=== PATIENT | male | born 1950 | race Two or more races ===

== ENCOUNTER 2024-12-28 13:28 | Inpatient (IN) | payer OTHER, MEDICARE ==
[~2024-12-28] VITALS: Ht 177.8 cm; Wt 123.8 kg
--- NOTE | 2024-12-28 14:08 | DVH ---
EXAM: XY CHEST PORTABLE HISTORY: sob COMPARISON: None available TECHNIQUE: Portable upright AP view of the chest was performed. FINDINGS: There is interstitial prominence, greater centrally. No pneumothorax or consolidative infiltrates. T he heart is enlarged. IMPRESSION: Cardiomegaly and central pulmonary vascular congestion suggestive of mild CHF.
--- NOTE | 2024-12-28 14:36 | ED.PDOC ---
SOB-HPI HPI Comments 74 y.o male with PMH of GERD and HTN, presents to the ED for a chief complaint of exertional SOB x 1 month associated with bilateral lower extremity swelling x 2 weeks. Patient reports recently prescribed Hydrochlorothiazide for blood pressure by PCP. Patient denies any chest pain, palpitations, fever, chills. Denies tobacco, alcohol or substance use. Chief Complaint: Shortness of Breath Time Seen by MD: 13:41 Primary Care Provider: WALLACE Reviewed notes: Nurses Notes, Medications, Allergies Information Source: Patient Mode of Arrival: Wheelchair Severity: Moderate Timing: Months (1) Duration: Since onset Context: At Rest PE Risk Factors: None History of: None Modifying Factors: Nothing Associated Signs and Symptoms: Leg Swelling Past Medical History PAST MEDICAL HISTORY: GERD, HTN Surgical History: Hernia Repair Surgical History (Other): Toe Family History Family History: Reviewed,noncontributory to illness Social History Smoker: Non-Smoker Alcohol: Denies ETOH Use Drugs: Denies Drug Use Lives In: Home Constitutional: denies: chills, diaphoresis, fatigue, fever, malaise, sweats, weakness, others EENTM: denies: blurred vision, double vision, ear bleeding, ear discharge, ear drainage, ear pain, ear ringing, eye pain, eye redness, hearing loss, mouth pain, mouth swelling, nasal discharge, nose bleeding, nose congestion, nose pain, photophobia, tearing, throat pain, throat swelling, voice changes, others Respiratory: reports: shortness of breath, SOB with excertion, wheezing; denies: cough, hemoptysis, orthopnea, SOB at rest, stridor, others Cardiovascular: denies: chest pain, dizzy spells, diaphoresis, Dyspnea on exertion, edema, irregular heart beat, left arm pain, lightheadedness, palpitations, PND, syncope, others Gastrointestinal: denies: abdomen distended, abdominal pain, blood streaked bowels, constipated, diarrhea, dysphagia, difficulty swallowing, hematemesis, melena, nausea, poor appetite, poor fluid intake, rectal bleeding, rectal pain, vomiting, others Genitourinary: denies: burning, dysuria, flank pain, frequency, hematuria, incontinence, penile discharge, penile sore, pain, testicle pain, testicle swelling, urgency, others Neurological: denies: dizziness, fainting, headache, left sided numbness, left sided weakness, numbness, paresthesia, pre-existing deficit, right sided numbness, right sided weakness, seizure, speech problems, tingling, tremors, weakness, others Musculoskeletal: reports: others (leg swelling ); denies: back pain, gout, joint pain, joint swelling, muscle pain, muscle stiffness, neck pain Integumetry: denies: bruises, change in color, change in hair/nails, dryness, laceration, lesions, lumps, rash, wounds, others Allergic/Immunocompromised: denies: Difficulty Healing, Frequent Infections, Hives, Itching, others Hematologic/Lymphatic: denies: anemia, blood clots, easy bleeding, easy bruising, swollen glands, others Endocrine: denies: excessive hunger, excessive sweating, excessive thirst, excessive urination, flushing, intolerance to cold, intolerance to heat, unexplained weight gain, unexplained weight loss, others Psychiatric: denies: anxiety, bipolar disorder, depression, hopeless, panic disorder, schizophrenia, sleepless, suicidal, others All Other Systems: Reviewed and Negative Physical Exam General Appearance: No Apparent Distress, Obese HEENT: Other (Pupils symmetric, no facial asymmetry, moist mucous membranes) Neck: Full Range of Motion, Normal Inspection Respiratory: No Accessory Muscle Use, No Respiratory Distress, Rales, Wheezing Cardiovascular: Irregular, No JVD Breast Exam: Deferred Gastrointestinal: Non Tender, Soft Genitalia: Deferred Pelvic: Deferred Rectal: Deferred Extremities: Leg edema, Normal range of motion, Pedal edema Neurologic: Alert (Oriented x4), Normal Affect, Normal Mood, Other (Moves all extremities. No gross focal deficit.) Cerebellar Function: NOT DONE Reflexes: NOT DONE Skin: Dry, Normal Color, Warm Lymphatic: NOT DONE EKG EKG : Comments AFib, rate 92, normal QRS interval, QTC prolonged at 499, normal axis, possible old anteroseptal infarct, nonspecific T changes. Was a procedure done? Was a procedure done?: No Differential Dx Differential Diagnosis: Asthma, Bronchitis, CHF, COPD, Dysrhythmia, Myocardial infarction, Pneumonia, Pulmonary Embolism, Respiratory Distress Comments DVT X-Ray, Labs, Meds, VS Vital Signs Date Time Temp Pulse Resp B/P (MAP) Pulse Ox O2 Delivery O2 Flow Rate FiO2 12/28/24 18:43 94 16 92 Room Air* 0 21 12/28/24 18:43 94 16 135/76 (95) 92 12/28/24 18:42 135/76 12/28/24 15:39 92 12/28/24 13:39 97.8 86 18 121/74 (90) 92 Lab Test 12/28/24 16:39 12/28/24 15:22 12/28/24 14:37 Range/Units Urine Color Straw Yellow Urine Clarity Clear Clear Urine pH 6.5 5.0-9.0 Urine Specific [place] 1.004 1.001-1.035 Urine Protein Negative Negative Urine Ketones Negative Negative Urine Blood Negative Negative /uL Urine Nitrite Negative Negative Urine Bilirubin Negative Negative Urine Urobilinogen Normal Negative mg/dL Urine Leukocyte Esterase Negative Negative /uL Urine RBC None seen 0 - 3 /hpf Urine Microscopic WBC < 1 0-3 /HPF Urine Squamous Epithelial Cells None seen <5 /hpf Urine Bacteria None seen None Seen /hpf Urine Glucose Normal Normal mg/dL Troponin I High Sensitivity 10 9 </=54 ng/L White Blood Count 7.3 4.4-10.8 10^3/uL Red Blood Count 4.05 L 4.5-5.90 10^6/uL Hemoglobin 14.0 13.5-17.5 g/dL Hematocrit 40.3 L 41.0-53.0 % Mean Corpuscular Volume 99.5 80.0-100.0 fL Mean Corpuscular Hemoglobin 34.4 H 28.0-32.0 pg Mean Corpuscular Hemoglobin Concent 34.6 32.0-36.0 g/dL Red Cell Distribution Width 14.5 H 11.8-14.3 % Platelet Count 143 140-450 10^3/uL Mean Platelet Volume 6.4 L 6.9-10.8 fL Neutrophils (%) (Auto) 80.3 H 37.0-80.0 % Lymphocytes (%) (Auto) 8.9 L 10.0-50.0 % Monocytes (%) (Auto) 10.0 0.0-12.0 % Eosinophils (%) (Auto) 0.4 0.0-7.0 % Basophils (%) (Auto) 0.4 0.0-2.0 % Neutrophils # (Auto) 5.9 1.6-8.6 10 ^3/uL Lymphocytes # (Auto) 0.6 0.4-5.4 10 ^3/uL Monocytes # (Auto) 0.7 0-1.3 10 ^3/uL Eosinophils # (Auto) 0 0-0.8 10 ^3/uL Basophils # (Auto) 0 0-0.2 10 ^3/uL Nucleated Red Blood Cells 0.0 % Sodium Level 123 L 136-145 mmol/L Potassium Level 5.3 H 3.5-5.1 mmol/L Chloride Level 87 L 98-107 mmol/L Carbon Dioxide Level 30 20-31 mmol/L Anion Gap 6 5-15 Blood Urea Nitrogen 11 9-23 mg/dL Creatinine 0.64 L 0.700-1.30 mg/dL Glomerular Filtration Rate Calc 100 >90 mL/min BUN/Creatinine Ratio 17.2 10.0-20.0 Serum Glucose 109 H 74-106 mg/dL Calcium Level 9.6 8.7-10.4 mg/dL Total Bilirubin 1.6 H 0.2-1.0 mg/dL Aspartate Amino Transferase (AST) 24 13-40 U/L Alanine Aminotransferase (ALT) 20 7-40 U/L Alkaline Phosphatase 72 46-116 U/L B-Type Natriuretic Peptide 1112.71 0-100 pg/mL Total Protein 5.9 5.7-8.2 g/dL Albumin 4.4 3.2-4.8 g/dL Current Medications Medications (Trade) Dose Ordered Sig/Joe Route Start Time Stop Time Status Last Admin Furosemide (Lasix Injection) 40 mg ONCE ONCE IV 12/28/24 13:45 12/28/24 13:47 DC 12/28/24 18:42 [place] [address] Ph: [phone] DIAGNOSTIC IMAGING Diagnostic Imaging Report : [id number] Signed PATIENT: MILLICENT HAWKINS ACCT: [id number] UNIT: [id number] : 1950 LOC: ER ROOM / BED: / AGE / SEX: 74 / M ADM STATUS: REG ER SERVICE 1345 ORDERING PHYSICIAN: DIANE DENNEY MD PROCEDURE(s): BLDVT - BiLat Lower DVT REASON: edema ORDER NUMBER(s): [id number], ACCESSION NUMBER(s): [id number] BILATERAL LOWER EXTREMITY VENOUS DOPPLER CLINICAL HISTORY: edema Technique: Duplex Doppler evaluation of the deep venous systems of both lower extremities from the common femoral veins to the popliteal veins including color Doppler and spectral/pulsed waveform analysis was performed. COMPARISON: FINDINGS: The right and left common femoral, superficial femoral, popliteal, posterior tibial veins and trifurcations appear patent with normal augmentation, phasicity, compressibility and color-flow. There is a right popliteal fossa Lindquist's cyst measuring 5.0 x 4.4 cm in the left popliteal fossa Lnidquist's cyst measuring 4.2 x 3.9 cm. IMPRESSION: 1. There is no sonographic evidence for DVT in the lower extremities. HS:Y ATED BY: WILD BRAY MD DICTATED DATE/TIME: 12/28/241449 SIGNED BY: WLID BRAY MD SIGNED DATE/TIME: 12/28/241449 CC: [place] [address] Ph: [phone] DIAGNOSTIC IMAGING Diagnostic Imaging Report : [id number] Signed PATIENT: MILLICENT HAWKINS ACCT: [id number] UNIT: [id number] : 1950 LOC: ER ROOM / BED: / AGE / SEX: 74 / M ADM STATUS: REG ER SERVICE 44 ORDERING PHYSICIAN: DIANE DENNEY MD PROCEDURE(s): CXRP - CHEST PORTABLE REASON: sob ORDER NUMBER(s): [id number], ACCESSION NUMBER(s): [id number] EXAM: XY CHEST PORTABLE HISTORY: sob COMPARISON: None available TECHNIQUE: Portable upright AP view of the chest was performed. FINDINGS: There is interstitial prominence, greater centrally. No pneumothorax or consolidative infiltrates. The heart is enlarged. IMPRESSION: Cardiomegaly and central pulmonary vascular congestion suggestive of mild CHF. ATED BY: YADIEL BOONE MD DICTATED DATE/TIME: 12/28/241404 SIGNED BY: YADIEL BOONE MD SIGNED DATE/TIME: 02/10/25 1405 CC: X-Ray, Labs, Meds, VS Comment 74-year-old male with history of hypertension and GERD complaining of exertional dyspnea and lower extremity swelling Vitals remarkable for oxygen saturation 92% on room air Exam remarkable for diminished breath sounds, bilateral scattered expiratory wheezes and rales, irregularly irregular heart rhythm, 2+ pitting edema bilateral lower extremities. Rhythm strip independently interpreted by me: AFib, rate 92, no PVC is EKG AFib, nonspecific T changes Chest x-ray IMPRESSION: Cardiomegaly and central pulmonary vascular congestion suggestive of mild CHF. Lower extremity ultrasound: No DVT bilaterally CBC unremarkable, metabolic panel remarkable for sodium 123, potassium 5.3, chloride 87 BNP 1112.71, two serial troponins negative Patient treated with the following in the ED: Lasix 40 mg IV, Nitro-Bid 1/2 inch to chest wall On re-evaluation, patient was resting comfortably with stable vitals. No respiratory distress at rest. Plan is treated with the patient for diuresis, and cardiology evaluation. Time of 1ST Reevaluation: 14:31 Reevaluation 1ST: Unchanged Patient Education/Counseling: Diagnosis, Treatment, Prognosis Family Education/Counseling: Diagnosis, Treatment, Prognosis Departure 1 Departure Time of Disposition: 19:52 Impression: Primary Impression: New onset a-fib Additional Impression: New onset of congestive heart failure Disposition: ADMITTED INPATIENT Admit to: Tele Condition: Guarded Critical Care Note Critical Care Time?: Yes (45 min-critical care time only) Critical care comment: Critical care time includes multiple bedside re-evaluations, review of lab and imaging studies, discussion of the case with the admitting provider. Patient was high risk for hemodynamic and/or respiratory decompensation. Stability Stability form required: No Heart Score Heart Score: Heart Score Response (Comments) Value History N/A 0 EKG N/A 0 Age N/A 0 Risk Factors N/A 0 Troponin N/A 0 Total 0 I personally scribed for DIANE DENNEY MD ([facility]) on 12/28/24 at 14:36. Electronically submitted by Lluvia Ryan ([facility]). I personally scribed for DIANE DENNEY MD ([facility] on 12/28/24 at 14:55. Electronically submitted by Lluvia Ryan ([facility]). DIANE DENNEY MD Dec 28, 2024 14:36
[2024-12-28 14:47] LABS: Basophils # (auto) 0 10 ^3/uL (0-0.2); Basophils % (auto) 0.4 % (0.0-2.0); Eosinophils # (auto) 0 10 ^3/uL (0-0.8); Eosinophils % (auto) 0.4 % (0.0-7.0); Hematocrit 40.3 % (41.0-53.0); Lymphocytes # (auto) 0.6 10 ^3/uL (0.4-5.4); Lymphocytes % (auto) 8.9 % (10.0-50.0); Mean Corpuscular Hemoglobin 34.4 pg (28.0-32.0); Mean Corpuscular Hgb Conc. 34.6 g/dL (32.0-36.0); Mean Corpuscular Volume 99.5 fL (80.0-100.0); Monocytes # (auto) 0.7 10 ^3/uL (0-1.3); Neutrophils # (auto) 5.9 10 ^3/uL (1.6-8.6); Neutrophils % (auto) 80.3 % (37.0-80.0); Platelet Count (auto) 143 10^3/uL (140-450); Red Blood Cells 4.05 10^6/uL (4.5-5.90); Red Cell Distribution Width 14.5 % (11.8-14.3); White Blood Cell 7.3 10^3/uL (4.4-10.8)
--- NOTE | 2024-12-28 14:53 | DVH ---
BILATERAL LOWER EXTREMITY VENOUS DOPPLER CLINICAL HISTORY: edema Technique: Duplex Doppler evaluation of the deep venous systems of both lower extremities from the co mmon femoral veins to the popliteal veins including color Doppler and spectral/pulsed waveform analys is was performed. COMPARISON: FINDINGS: The right and left common femoral, superficial femoral, popliteal, posterior tibial veins and trifur cations appear patent with normal augmentation, phasicity, compressibility and color-flow. There is a right popliteal fossa Lindquist's cyst measuring 5.0 x 4.4 cm in the left popliteal fossa Lindquist's cyst m easuring 4.2 x 3.9 cm. IMPRESSION: 1. There is no sonographic evidence for DVT in the lower extremities. HS:Y
[2024-12-28 15:31] LABS: Alanine Aminotransferase 20 U/L (7-40); Albumin 4.4 g/dL (3.2-4.8); Alkaline Phosphatase 72 U/L (46-116); Anion Gap 6 (5-15); Aspartate Aminotransferase 24 U/L (13-40); BUN/Creatinine Ratio 17.2 (10.0-20.0); Blood Urea Nitrogen 11 mg/dL (9-23); Calcium 9.6 mg/dL (8.7-10.4); Carbon Dioxide 30 mmol/L (20-31)
[2024-12-28 15:32] LABS: Total Protein 5.9 g/dL (5.7-8.2)
[2024-12-28 15:33] LABS: Bilirubin, Total 1.6 mg/dL (0.2-1.0); Chloride 87 mmol/L (98-107); Glucose 109 mg/dL (74-106); Potassium 5.3 mmol/L (3.5-5.1); Sodium 123 mmol/L (136-145)
[2024-12-28 18:30] LABS: Urine Bacteria None Seen /hpf (None Seen)
[2024-12-28 18:41] LABS: Urine Blood Negative /uL (Negative); Urine Clarity Clear (Clear); Urine Protein, UAD Negative (Negative); Urine Specific Gravity 1.004 (1.001-1.035); Urine Squamous Epithelial Cell None Seen /hpf (<5); Urine Urobilinogen Normal (Negative); Urine WBC < 1 /HPF (0-3); Urine pH 6.5 (5.0-9.0)
[2024-12-28] MEDS: FUROSEMIDE 40 MG/4 ML VIAL IV ONE (18:42)
[2024-12-28 18:43] VITALS: PULSE 94; RESP 16; O2SAT 92
[2024-12-28 18:47] LABS: Urine Color STRAW (Yellow)
[2024-12-28] MEDS: NITROGLYCERIN 2% OINT 1GM PKG TD ONE (19:45)
[2024-12-28] MEDS ORDERED: MORPHINE SULFATE INJ 2 MG/ml SYRG IV PRN (20:45)
[2024-12-28] MEDS ORDERED: NITROGLYCERIN 0.4 MG SL TAB SL PRN (20:45)
[2024-12-28] MEDS ORDERED: ONDANSETRON HCL 4 MG/2 ML VIAL IV PRN (20:45)
--- NOTE | 2024-12-28 21:11 | ECG ---
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
--- NOTE | 2024-12-28 21:38 | DVHHPRES ---
History of Present Illness Resident Creating Document: HIMANSHU CHURCHILL RESIDENT History of Present Illness MILLICENT HAWKINS is a 74-year-old male with a PMH of GERD and HTN presented to the ED with the chief complaints of on and off respiratory symptoms like cough, cold, wheeze for 1 month which has been worsening for past 1 week associated with shortness of Breath with moderate exertion, bilateral lower extremity swelling, difficulty breathing in the midnight which made him to wake him and thive for air(PND). patient went to PCP, given inhaler and HCTZ at but no improvement, which prompted him to visit ED. on my assessment patient denies fever, nausea, vomiting, chest pain, diaphoresis, and other acute associated symptoms. PMH: HTN for 20 years( on amlodipine and benazepril), GERD on Protonix 10 PSH: Umbilical hernia repair in past Family history: Diabetes in father and brother Social history: Lives at home with family. Former smoker (40 years ago smoker 1.5 pack per day for 20 years), 3-4 glasses of wine per day, denied other drug abuse Allergies: No known allergies Home medications: Amlodipine 10 mg, benazepril 40 mg, pantoprazole 40 Review of Systems Review of Systems Patient seen and examined at the bedside. Currently given 1 dose of Lasix, patient has been reported mild improvement in his symptoms, reported no new complaints. Ordered echocardiogram and other lab test, pending. CXR showed findings suggesti ve of CHF, consulted cardiology. Constitutional: No: Fever, Chills, Sweats, Weakness, Malaise, Other Eyes: No: Pain, Vision change, Conjunctivae inflammation, Eyelid inflammation, Other, Redness ENT: No: Ear pain, Ear discharge, Nose pain, Nose discharge, Nose congestion, Mouth pain, Mouth swelling, Throat pain, Throat swelling, Other Respiratory: Cough, Shortness of breath, SOB with excertion Cardiovascular: Orthopnea, Paroxysmal Noc. Dyspnea, Edema Gastrointestinal: No: Nausea, Vomiting, Abdominal Pain, Diarrhea, Constipation, Melena, Hematochezia, Other Genitourinary: No Dysuria, No Frequency, No Incontinence, No Hematuria, No Retention, No Other Musculoskeletal: No: other, neck pain, shoulder pain, arm pain, back pain, hand pain, leg pain, foot pain Skin: No: Rash, Lesions, Jaundice, Bruising, Other Neurological: No: Weakness, Numbness, Incoordination, Change in speech, Con fusion, Seizures, Other Allergies: Coded Allergies: NO KNOWN ALLERGIES (Unverified , 12/28/24) Medications Current Medications Medications Dose Ordered Sig/Joe Route Start Time Stop Time Status Last Admin Dose Admin Sodium Chloride 10 ml Q8HR IV 12/28/24 22:00 Ondansetron HCl 4 mg Q4HP PRN IV 12/28/24 20:45 Enoxaparin Sodium 40 mg DAILY SC 12/29/24 10:00 Acetaminophen 650 mg Q6HP PRN PO 12/28/24 20:45 Nitroglycerin 0.4 mg Q5MINP PRN SL 12/28/24 20:45 Morphine Sulfate 2 mg Q30M PRN IV 12/28/24 20:45 Exam Vital Signs Vital Signs Date Time Temp Pulse Resp B/P (MAP) Pulse Ox O2 Delivery O2 Flow Rate FiO2 12/28/24 18:43 94 16 92 Room Air* 0 21 12/28/24 18:43 135/76 (95) 12/28/24 13:39 97.8 Exam Pt is lying on bed General Appearance: Alert, Oriented X3, Cooperative, mild distress HEENT: Atraumatic, Mucous membranes moist/pink Respiratory: Mild crackles, Normal air movement Cardiovascular: Regular rate, Normal S1, Normal S2 Abdominal: Active bowel sounds, Soft, no distention, no tenderness Extremities: 2+ BLE, Normal pulses, No tenderness Skin: No Significant rash, except past surgical scars Neuro: Normal speech, sensorimotor deficits none Psych/Mental Status: Mental status NL, Mood NL Labs/Xrays Labs Test 12/28/24 16:39 12/28/24 15:22 12/28/24 14:37 Range/Units Urine Color Straw Yellow Urine Clarity Clear Clear Urine pH 6.5 5.0-9.0 Urine Specific [place] 1.004 1.001-1.035 Urine Protein Negative Negative Urine Ketones Negative Negative Urine Blood Negative Negative /uL Urine Nitrite Negative Negative Urine Bilirubin Negative Negative Urine Urobilinogen Normal Negative mg/dL Urine Leukocyte Esterase Negative Negative /uL Urine RBC None seen 0 - 3 /hpf Urine Microscopic WBC < 1 0-3 /HPF Urine Squamous Epithelial Cells None seen <5 /hpf Urine Bacteria None seen None Seen /hpf Urine Glucose Normal Normal mg/dL Troponin I High Sensitivity 10 </=54 ng/L White Blood Count 7.3 4.4-10.8 10^3/uL Red Blood Count 4.05 L 4.5-5.90 10^6/uL Hemoglobin 14.0 13.5-17.5 g/dL Hematocrit 40.3 L 41.0-53.0 % Mean Corpuscular Volume 99.5 80.0-100.0 fL Mean Corpuscular Hemoglobin 34.4 H 28.0-32.0 pg Mean Corpuscular Hemoglobin Concent 34.6 32.0-36.0 g/dL Red Cell Distribution Width 14.5 H 11.8-14.3 % Platelet Count 143 140-450 10^3/uL Mean Platelet Volume 6.4 L 6.9-10.8 fL Neutrophils (%) (Auto) 80.3 H 37.0-80.0 % Lymphocytes (%) (Auto) 8.9 L 10.0-50.0 % Monocytes (%) (Auto) 10.0 0.0-12.0 % Eosinophils (%) (Auto) 0.4 0.0-7.0 % Basophils (%) (Auto) 0.4 0.0-2.0 % Neutrophils # (Auto) 5.9 1.6-8.6 10 ^3/uL Lymphocytes # (Auto) 0.6 0.4-5.4 10 ^3/uL Monocytes # (Auto) 0.7 0-1.3 10 ^3/uL Eosinophils # (Auto) 0 0-0.8 10 ^3/uL Basophils # (Auto) 0 0-0.2 10 ^3/uL Nucleated Red Blood Cells 0.0 % Sodium Level 123 L 136-145 mmol/L Potassium Level 5.3 H 3.5-5.1 mmol/L Chloride Level 87 L 98-107 mmol/L Carbon Dioxide Level 30 20-31 mmol/L Anion Gap 6 5-15 Blood Urea Nitrogen 11 9-23 mg/dL Creatinine 0.64 L 0.700-1.30 mg/dL Glomerular Filtration Rate Calc 100 >90 mL/min BUN/Creatinine Ratio 17.2 10.0-20.0 Serum Glucose 109 H 74-106 mg/dL Calcium Level 9.6 8.7-10.4 mg/dL Total Bilirubin 1.6 H 0.2-1.0 mg/dL Aspartate Amino Transferase (AST) 24 13-40 U/L Alanine Aminotransferase (ALT) 20 7-40 U/L Alkaline Phosphatase 72 46-116 U/L B-Type Natriuretic Peptide 1112.71 0-100 pg/mL Total Protein 5.9 5.7-8.2 g/dL Albumin 4.4 3.2-4.8 g/dL Assessment/Plan Assessment/Plan # Afib likely new onset WITHOUT RVR - personnel monitor - EKG reviewed - rate control with Coreg - therapeutic Lovenox # ? Acute systolic v/s diastolic CHF likely new onset # Orthopnea and PND # B/L lower extremity pitting edema - elevated BNP - CXR showing cardiomegaly with pulmonary vascular congestion - ordered echocardiogram - currently receiving Lasix 40 mg iv bid - strict I&O - ordered TSH, lipid panel, UDS - GDMT as tolerated with Coreg 3.125 - cardiology consult # uncontrolled hypertension - continuously monitor - currently giving coreg # hyponatremia - monitor for now # hyperkalemia - ordered protocol # rule out influenza and COVID -rapid test ordered, pending # GERD - resume home meds # ruled out DVT - venous scan negative # morbid obesity with a BMI 35 -nutritional counseling PUD PPX : Protonix VTE PPX : Lovenox Diet: Cardiac diet Reconciled home meds Goals of care discussed with the patient and son for more than 27 minutes: Full code status Case discussed with Dr. Moe, patient and nurse Plan discussed with: Patient, Son, Other (RN) My Orders Orders - HIMANSHU CHURCHILL RESIDENT Procedure Category Date Status Time Admit ADMIT 12/28/24 Transmitted 20:32 Allergies MONSE 12/28/24 In Process 20:32 Code Status CODE 12/28/24 Transmitted 20:32 Sodium Chloride Lock PHA 12/28/24 In Process (Saline Lock Ns) 22:00 Ondansetron Hcl PHA 12/28/24 In Process (Zofran) 20:45 Enoxaparin Sodium PHA 12/29/24 In Process (Lovenox) 10:00 Complete Blood Count LAB 12/29/24 Verified 04:00 Comprehensive LAB 12/29/24 Verified Metabolic Panel 04:00 Cardiac DIET 12/29/24 Transmitted Diet-2gna,Lofat,Lochol Breakfast Echo 2d Mode Cardiac US 12/28/24 Logged DOP 20:32 Condition: Stable MONSE 12/28/24 In Process 20:32 Acetaminophen Tablet PHA 12/28/24 In Process (Tylenol Tablet) 20:45 Nitroglycerin PHA 12/28/24 In Process Sublingual (Ntrostat 20:45 Morphine Sulfate PHA 12/28/24 In Process Injection 20:45 Oxygen By Nasal RT 12/28/24 Transmitted Cannula 20:32 Stat Ekg For Chest MONSE 12/28/24 In Process Pain 20:32 Notify Md Of Changes MONSE 12/28/24 In Process From Base 20:32 Repair Service Clerk For [facility] 12/28/24 In Process 24 Hours 20:32 Emergency Dysrhythmia [facility] 12/28/24 In Process Protocol 20:32 Rhythm Strips Once [facility] 12/28/24 In Process Every Shift 20:32 Date of Service: Dec 28, 2024 Billing Provider: EREN MOE MD Common Visit Codes: [id number] INP/OBS CARE (HIGH) HIMANSHU CHURCHILL RESIDENT Dec 28, 2024 21:38 EREN MOE MD Dec 30, 2024 01:17
[2024-12-28] MEDS: DEXTROSE (50%) 50ML SYRG IV ONE (22:47)
[2024-12-28] MEDS: SODIUM BICARB 8.4% 50Meq/50ml SYR INJ IV ONE (22:47)
[2024-12-28] MEDS: InsuLIN REG 1unit/0.01ml Soln (100units/ml) IV ONE (22:48)
[2024-12-28] MEDS: SODIUM CHLOR 0.9% PF (SALINE LOCK) 10ML VIAL/SYR IV SCH (22:49)
[2024-12-28 23:03] LABS: Amphetamine Screen, Urine Neg (NEGATIVE); Barbiturate Scree,Urine Neg (NEGATIVE); Benzodiazephine Screen, Urine Neg (NEGATIVE); Cannabinoid Screen, Urine Neg (NEGATIVE); Cocaine Screen, Urine Neg (NEGATIVE); Opiate Scree,Urine Neg (NEGATIVE); Phencyclidine Screen, Urine Neg (NEGATIVE)
[2024-12-28 23:04] LABS: INR 1.11 (0.9-1.15); Partial Thromboplastin Time 26.2 SEC (24.5-34.5); Prothrombin Time 11.6 sec (9.3-11.8)
[2024-12-28 23:07] LABS: Triglycerides 54 mg/dL (< 150)
[2024-12-28 23:08] LABS: LDL Cholesterol 83 mg/dL (< 100)
[2024-12-28 23:09] LABS: Cholesterol 157 mg/dL (< 200)
[2024-12-28 23:10] LABS: HDL Cholesterol 65 mg/dL (40-59)
[2024-12-28 23:37] LABS: Blood Alcohol < 3.0 mg/dL (<10)
[2024-12-29] VITALS (7 sets, daily range): BP systolic 109–134; BP diastolic 66–84; PULSE 74–106; RESP 18–78; TEMP 97.2–98.6; O2SAT 90–98
[2024-12-29] MEDS: CARVEDILOL 3.125 MG TAB PO ONE (02:04)
[2024-12-29] MEDS: ENOXAPARIN SOD 100 MG/1 ML SYRINGE SC ONE (02:05)
[2024-12-29] MEDS: FUROSEMIDE 40 MG/4 ML VIAL IV SCH (05:52)
[2024-12-29] MEDS: PANTOPRAZOLE 40 MG TAB PO SCH (05:56)
[2024-12-29 07:30] LABS: Basophils # (auto) 0 10 ^3/uL (0-0.2); Basophils % (auto) 0.3 % (0.0-2.0); Eosinophils # (auto) 0.1 10 ^3/uL (0-0.8); Eosinophils % (auto) 1.3 % (0.0-7.0); Hematocrit 44.3 % (41.0-53.0); Hemoglobin 15.1 g/dL (13.5-17.5); Lymphocytes # (auto) 0.6 10 ^3/uL (0.4-5.4); Lymphocytes % (auto) 10.7 % (10.0-50.0); Mean Corpuscular Hemoglobin 34.1 pg (28.0-32.0); Mean Corpuscular Hgb Conc. 34.1 g/dL (32.0-36.0); Monocytes # (auto) 0.7 10 ^3/uL (0-1.3); Monocytes % (auto) 12.2 % (0.0-12.0); Neutrophils # (auto) 4.6 10 ^3/uL (1.6-8.6); Neutrophils % (auto) 75.5 % (37.0-80.0); Nucleated Red Blood Cells % 0.1 %; Platelet Count (auto) 149 10^3/uL (140-450); Red Blood Cells 4.42 10^6/uL (4.5-5.90); Red Cell Distribution Width 14.7 % (11.8-14.3)
[2024-12-29 07:39] LABS: Alanine Aminotransferase 20 U/L (7-40); Alkaline Phosphatase 75 U/L (46-116); Anion Gap 7 (5-15); BUN/Creatinine Ratio 15.9 (10.0-20.0); Blood Urea Nitrogen 11 mg/dL (9-23); Calcium 9.9 mg/dL (8.7-10.4); Glucose 98 mg/dL (74-106); Potassium 4.2 mmol/L (3.5-5.1)
[2024-12-29 07:40] LABS: Aspartate Aminotransferase 28 U/L (13-40)
[2024-12-29 07:41] LABS: Albumin 4.5 g/dL (3.2-4.8); Total Protein 6.3 g/dL (5.7-8.2)
[2024-12-29 07:57] LABS: Carbon Dioxide 32 mmol/L (20-31); Chloride 89 mmol/L (98-107); Sodium 128 mmol/L (136-145)
[2024-12-29 09:05] LABS: COVID19 ANTIGEN SOFIA FIA NEGATIVE (NEGATIVE); Rapid Influenza A Negative (Negative); Rapid Influenza B Negative (Negative)
[2024-12-29] MEDS ORDERED: AMLO1TAB23 PO (09:26)
[2024-12-29] MEDS ORDERED: ASPI81CH59 PO (09:27)
[2024-12-29] MEDS ORDERED: BENA40TA71 PO (09:28)
[2024-12-29] MEDS ORDERED: HYDR12.59 PO (09:30)
[2024-12-29] MEDS ORDERED: CHOL20007 PO (09:32)
[2024-12-29] MEDS ORDERED: PANT1INJ3 PO (09:35)
[2024-12-29] MEDS ORDERED: ENOXAPARIN SOD 40 MG/0.4 ML SYRINGE SC SCH (10:00)
[2024-12-29] MEDS ORDERED: BENAZEPRIL HCL 10 MG TAB PO SCH (10:00)
[2024-12-29] MEDS: ENOXAPARIN SOD 100 MG/1 ML SYRINGE SC SCH (10:00)
--- NOTE | 2024-12-29 12:27 | DVHSR ---
APPROVED REPORT EXAM: Two-dimensional and M-mode echocardiogram with Doppler and color Doppler. Blood Pressure: 119/77 mmHg INDICATION CHF RISK FACTORS Obesity: Height: 5'10", Weight: 243 DIMENSIONS LVDd6.3 (3.8-5.7cm)LA (2D)5.2 (1.9-4.0cm)Aortic Root3.5 (2.0-3.7cm) LVDs5.8 (2.5-4.0cm)LA (MM) (1.9-4.0cm)Aortic Cusp Exc1.8 (1.5-2.0cm) EF (%) 20.0 (55-70%)Rt. Atrium6.0 (1.9-4.0cm)Asc. Aorta cm IVSd1.1 (0.7-1.1cm)RV (D) (1.8-2.4cm) PWd1.3 (0.7-1.1cm) Mitral Valve MitralMitral Stenosis E wave1.31m/sMV Mean GR.mmHg E/A ratio0.02D MVAcm2 Aortic Valve Aortic ValveAortic Stenosis V10.77m/Esther Mean GR.3mmHg V21.23m/Esther Peak GR.6mmHg LVOT Diameter2.0 (1.8-2.4cm)Doppler AVA1.97cm2 Pulmonic Valve V20.77m/s Tricuspid Valve TR Velocity3.13m/s [id number] Other Information Technically limited study due to body habitus, patient sitting up. Conclusion severe dilated LV LVEF <20% by visual estimate RV enlarged with significant dysfunction moderat to severe mitral regurg marked biatrial enlargement moderat to severe tricuspid regurg
--- NOTE | 2024-12-29 14:16 | DVHCONRES ---
Date Seen: Dec 29, 2024 Resident Creating Document: ALONZO TINEO RESIDENT Referring Physician Dr. Gipson, resident Reason for Consultation New onset CHF History of Present Illness This is a 74-year-old male who comes into the ED with chief complain of shortness of Breath. He has a past medical history relevant for hypertension, GERD. Patient takes amlodipine 10 mg q.d., benazepril 40 mg q.d., Protonix 40 mg q.d. Past surgical history of umbilical hernia repair. Family history of diabetes in father and brother. Social history relevant for heavy smoker, quit 40 years ago. Alcohol use, 3-4 glasses of wine per day, denied any illicit drug use. Patient stated that for the last four weeks he has been experiencing worsening shortness of breath, cough, chills and wheezing, sudden in the last week it has been getting worse. He has been experiencing bilateral lower leg swelling, inability to lie flat at night when sleeping. He was given hydrochlorothiazide clinic however it did not show any improvement. Patient currently denies any chest pain, fevers, nausea, vomiting, diaphoresis, dizziness, lightheadedness. In the ED, patient had an x-ray which revealed moderate vascular congestion, patient was started on Lasix, he was also started on his blood pressure medications along with carvedilol, flu and COVID tests came back negative, he was also given hyperkalemic treatment. An EKG revealed AFib with RVR, no ST-T wave changes. On my assessment, patient states feeling better, he was currently sleeping, denied any acute symptoms, he was on room air. Family History: Patient reports no known family medical history. Allergies: Coded Allergies: NO KNOWN ALLERGIES (Unverified , 12/28/24) Home Meds Reported Medications Pantoprazole Sodium (PANTOPRAZOLE SODIUM) 40 Mg Inj, 40 MG PO DAILY, INJ 12/29/24 Cholecalciferol (VITAMIN D3) 2,000 Unit Tab, 5000 UNIT PO DAILY, TAB 12/29/24 Hydrochlorothiazide (Hydrochlorothiazide) 12.5 Mg Cap, 1 CAP PO DAILY, #30 CAP 5 Refills 12/29/24 Benazepril Hcl (Benazepril Hcl) 40 Mg Tab, 1 TAB PO DAILY, #30 TAB 5 Refills 12/29/24 Aspirin (Aspirin Low Dose) 81 Mg Chw, 1 TAB PO DAILY, #30 TAB 3 Refills 12/29/24 Amlodipine Besylate (Amlodipine Besylate) 10 Mg Tab, 1 TAB PO DAILY, #30 TAB 5 Refills 12/29/24 Current Medications Current Medications Medications (Trade) Dose Ordered Sig/Joe Route PRN Reason Start Time Stop Time Status Last Admin Sodium Chloride (Saline Lock Ns) 10 ml Q8HR IV 12/28/24 22:00 12/29/24 05:53 Ondansetron HCl (Zofran) 4 mg Q4HP PRN IV NAUSEA / VOMITING 12/28/24 20:45 12/29/24 10:09 DC Enoxaparin Sodium (Lovenox) 40 mg DAILY SC 12/29/24 10:00 12/28/24 23:32 DC Acetaminophen (Tylenol Tablet) 650 mg Q6HP PRN PO PAIN SCALE 1-3 OR TEMP>100.4 12/28/24 20:45 Nitroglycerin (Ntrostat Sublingual) 0.4 mg Q5MINP PRN SL FOR CHEST PAIN 12/28/24 20:45 12/29/24 10:09 DC Morphine Sulfate 2 mg Q30M PRN IV FOR CHEST PAIN 12/28/24 20:45 12/29/24 10:09 DC Furosemide (Lasix Injection) 40 mg BIDD IV 12/29/24 06:00 Benazepril HCl (Lotensin Tablet) 40 mg DAILY PO 12/29/24 10:00 12/28/24 23:32 DC Pantoprazole Sodium (Protonix Tablet) 40 mg DAILY@0600 PO 12/29/24 06:00 12/29/24 05:56 Carvedilol (Coreg Tablet) 3.125 mg Q12HR PO 12/29/24 22:00 12/29/24 10:09 DC Enoxaparin Sodium (Lovenox) 110 mg Q12HR SC 12/29/24 10:00 Review of Systems Constitutional: Patient denies weight changes. Eyes: Patient denies any visual symptoms. Ears, Nose, and Throat: No difficulties with hearing. No symptoms of rhinitis or sore throat. Cardiovascular: Patient denies chest pains, palpitations, orthopnea and paroxys mal nocturnal dyspnea. Respiratory: Shortness of breath, wheezing and cough GI: No nausea, vomiting, diarrhea, constipation, abdominal pain, hematochezia or melena. : No urinary hesitancy or dribbling. No nocturia or urinary frequency. No abnormal urethral discharge. Musculoskeletal: No myalgias, arthralgias Neurologic: No chronic headaches, no seizures. Patient denies numbness, tingling or weakness. Psychiatric: Patient denies problems with mood disturbance. No problems with anxiety. Endocrine: No excessive urination or excessive thirst. Dermatologic: Patient denies any rashes or skin changes. Vital Signs Vital Signs Date Time Temp Pulse Resp B/P (MAP) Pulse Ox O2 Delivery O2 Flow Rate FiO2 12/29/24 13:04 97.6 79 18 134/71 (92) 92 97.6 12/29/24 08:37 Room Air* 0 21 Physical Exam General: Awake, alert, comfortable appearing, in no acute distress. HEENT: Head is normocephalic and atraumatic. Pupils are equal, round, and reactive to light. Extraocular muscles are intact. No nasal discharge. No facial trauma. Intraoral exam shows moist mucous membranes with no tonsillar enlargement or exudate. Neck: Supple with no cervical lymphadenopathy No meningismus. No goiter. Heart: Regular rate without murmur, rub, or gallop. Lungs: Bilateral [id number]-lkbexbgi crackles Abdomen: No external sign of injury. Bowel sounds are present. Abdomen is soft, nontender. No rebound, no guarding, no rigidity. There are no palpable masses. There is no flank pain on exam. Extremities: Strong peripheral pulses. Pitting edema plus two Skin: No rash. Neurologic: Cranial nerves II-XII intact without motor, sensory, or cerebellar deficit, no asterixis. Labs/Diagnostic Data Labs Test 12/29/24 07:54 12/29/24 06:40 12/28/24 22:41 12/28/24 22:39 Range/Units Influenza Type A Antigen Negative Negative Influenza Type B Antigen Negative Negative SARS-CoV-2 Antigen (Rapid) Negative NEGATIVE White Blood Count 6.0 4.4-10.8 10^3/uL Red Blood Count 4.42 L 4.5-5.90 10^6/uL Hemoglobin 15.1 13.5-17.5 g/dL Hematocrit 44.3 41.0-53.0 % Mean Corpuscular Volume 100.0 80.0-100.0 fL Mean Corpuscular Hemoglobin 34.1 H 28.0-32.0 pg Mean Corpuscular Hemoglobin Concent 34.1 32.0-36.0 g/dL Red Cell Distribution Width 14.7 H 11.8-14.3 % Platelet Count 149 140-450 10^3/uL Mean Platelet Volume 6.6 L 6.9-10.8 fL Neutrophils (%) (Auto) 75.5 37.0-80.0 % Lymphocytes (%) (Auto) 10.7 10.0-50.0 % Monocytes (%) (Auto) 12.2 H 0.0-12.0 % Eosinophils (%) (Auto) 1.3 0.0-7.0 % Basophils (%) (Auto) 0.3 0.0-2.0 % Neutrophils # (Auto) 4.6 1.6-8.6 10 ^3/uL Lymphocytes # (Auto) 0.6 0.4-5.4 10 ^3/uL Monocytes # (Auto) 0.7 0-1.3 10 ^3/uL Eosinophils # (Auto) 0.1 0-0.8 10 ^3/uL Basophils # (Auto) 0 0-0.2 10 ^3/uL Nucleated Red Blood Cells 0.1 % Sodium Level 128 #L 136-145 mmol/L Potassium Level 4.2 3.5-5.1 mmol/L Chloride Level 89 L 98-107 mmol/L Carbon Dioxide Level 32 H 20-31 mmol/L Anion Gap 7 5-15 Blood Urea Nitrogen 11 9-23 mg/dL Creatinine 0.69 L 0.700-1.30 mg/dL Glomerular Filtration Rate Calc 98 >90 mL/min BUN/Creatinine Ratio 15.9 10.0-20.0 Serum Glucose 98 74-106 mg/dL Calcium Level 9.9 8.7-10.4 mg/dL Total Bilirubin 2.0 H 0.2-1.0 mg/dL Aspartate Amino Transferase (AST) 28 13-40 U/L Alanine Aminotransferase (ALT) 20 7-40 U/L Alkaline Phosphatase 75 46-116 U/L Total Protein 6.3 5.7-8.2 g/dL Albumin 4.5 3.2-4.8 g/dL POC Glucose 117 H 70-106 mg/dl Prothrombin Time 11.6 9.3-11.8 sec Prothrombin Time INR 1.11 0.9-1.15 Activated Partial Thromboplast Time 26.2 24.5-34.5 SEC D-Dimer, Quantitative 2.07 H 0.0-0.49 mg/L FEU Hemoglobin A1c 5.6 <5.7 % A1C Magnesium Level 2.0 1.6-2.6 mg/dL Triglycerides Level 54 < 150 mg/dL Cholesterol Level 157 < 200 mg/dL LDL Cholesterol 83 < 100 mg/dL HDL Cholesterol 65 H 40-59 mg/dL Thyroid Stimulating Hormone (TSH) 2.47 0.55-4.78 uIU/mL Plasma/Serum Blood Alcohol < 3.0 <10 mg/dL Test 12/28/24 16:39 12/28/24 15:22 12/28/24 14:37 Range/Units Urine Color Straw Yellow Urine Clarity Clear Clear Urine pH 6.5 5.0-9.0 Urine Specific [place] 1.004 1.001-1.035 Urine Protein Negative Negative Urine Ketones Negative Negative Urine Blood Negative Negative /uL Urine Nitrite Negative Negative Urine Bilirubin Negative Negative Urine Urobilinogen Normal Negative mg/dL Urine Leukocyte Esterase Negative Negative /uL Urine RBC None seen 0 - 3 /hpf Urine Microscopic WBC < 1 0-3 /HPF Urine Squamous Epithelial Cells None seen <5 /hpf Urine Bacteria None seen None Seen /hpf Urine Glucose Normal Normal mg/dL Urine Opiates Screen Neg NEGATIVE Urine Fentanyl Screen Neg NEGATIVE Urine Barbiturates Screen Neg NEGATIVE Urine Phencyclidine Screen Neg NEGATIVE Urine Amphetamines Screen Neg NEGATIVE Urine Benzodiazepines Screen Neg NEGATIVE Urine Cocaine Screen Neg NEGATIVE Urine Cannabinoids Screen Neg NEGATIVE Troponin I High Sensitivity 10 </=54 ng/L B-Type Natriuretic Peptide 1112.71 0-100 pg/mL Assessment Acute systolic CHF, new onset Mitral regurgitation, moderate to severe Tricuspid regurgitation, moderate to severe Atrial fibrillation controlled rate, new onset Hypertension GERD Hyperkalemia Dilutional hyponatremia Obesity Plan/Recommendation Echocardiogram revealed severe dilated LV, ejection fraction of less than 20%, enlarged RV with dysfunction, moderate to severe mitral regurgitation, biatrial enlargement, moderate to severe tricuspid regurgitation Continue diuresis with Lasix Recommend initiating coreg at low dose Continue GDMT [id number]: 2 points Anticoagulate with therapeutic Lovenox 1 milligram/kilogram b.i.d. Maintain potassium >4 and magnesium >2 FU in outpatient setting for cardiac work up Case was discussed with Dr. Haskins PATIENT SEEN WITH RESIDENT PT HAS NEW ONSET SEVERE DILATED CM LIKELY 2/2 TO ETOH IV LASIX PT AWARE OF SERIOUSNESS OF CONDITION START HF THERAPY, BB, SGLT [facility] FOR 1-2 DAYS Plan discussed with: Patient ALEXANDER ALONZO MARX RESIDENT Dec 29, 2024 14:16 JONNY HASKINS MD Dec 29, 2024 19:42
[2024-12-29 14:53] LABS: Base Excess 4.8 mmol/L (-2.0-3.0)
[2024-12-29] MEDS: EMPAGLIFLOZIN 10 MG TAB PO SCH (15:15)
--- NOTE | 2024-12-29 17:00 | DVHPNRES ---
Progress Note Date Seen: Dec 29, 2024 Resident Creating Document: ALIA LAZARO RESIDENT Medical Necessity Reason Pt with a Central, PICC or Fol: No Subjective Review of Systems Patient is a 74-year-old male with past medical history of hypertension, GERD, dyslipidemia, prediabetes who came in due to shortness of breath. According to the patient, 5 weeks ago he developed a common cold-like illness and since then he has been experiencing increasing wheezing, orthopnea and difficulty catching his breath. Per patient, on multiple occasions he had to sit up to catch his breath. Per patient, around 2 weeks ago he started noticing swelling in bilateral lower extremity which progressively increased and prompted this visit to the hospital. On review of systems patient is complaining of fatigue, rhinorrhea, dry cough, shortness of breath and dyspnea. Echocardiogram showed ejection fraction less than 20% by visual estimate, right ventricular enlarged with significant dysfunction, severe dilated left ventricle, moderate to severe mitral regurgitation, marked biatrial enlargement, moderate to severe tricuspid regurgitation. 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 Quit smoking 30 years ago, prior to that smoked 1.5 pack per day for 20 years. Drinks alcohol every night, 2-3 glasses of wine. Denies using any drugs. Allergies: Denies Patient seen and examined at bedside. Patient is alert and oriented to time, place person and responding to all questions. General: Fatigue Eyes: No Pain, No Vision change, No Conjunctivae inflammation, No Eyelid inflammation, No Other, No Redness ENT: No Ear pain, No Ear discharge, No Nose pain, Nose discharge, No Nose congestion, No Mouth pain, No Mouth swelling, No Throat pain, No Throat swelling, No Other Cardiovascular: No Chest Pain, No Palpitations, No Orthopnea, No Paroxysmal No Dyspnea, No Edema, No Lt Headedness, No Other Respiratory: Dry Cough, Shortness of breath, No SOB with exertion, No Wheezing, No Hemoptysis, No Pleuritic Pain, No Sputum, No Other Gastrointestinal: No Nausea, No Vomiting, No Abdominal Pain, No Diarrhea, No Constipation, No Melena, No Hematochezia, No Other Genitourinary: No Dysuria, No Frequency, No Incontinence, No Hematuria, No Retention, No Other Musculoskeletal: No other, No neck pain, No shoulder pain, No arm pain, No back pain, No hand pain, No leg pain, No foot pain Skin: No Rash, No Lesions, No Jaundice, No Bruising, No Other Objective vital signs Vital Sign Date Time Temp Pulse Resp B/P (MAP) Pulse Ox O2 Delivery O2 Flow Rate FiO2 12/29/24 13:04 97.6 79 18 134/71 (92) 92 97.6 12/29/24 08:37 Room Air* 0 21 medications Current Medications Medications Dose Ordered Sig/Joe Route Start Time Stop Time Status Last Admin Dose Admin Sodium Chloride 10 ml Q8HR IV 12/28/24 22:00 12/29/24 14:00 10 ML Acetaminophen 650 mg Q6HP PRN PO 12/28/24 20:45 Furosemide 40 mg BIDD IV 12/29/24 06:00 Pantoprazole Sodium 40 mg DAILY@0600 PO 12/29/24 06:00 12/29/24 05:56 40 MG Enoxaparin Sodium 110 mg Q12HR SC 12/29/24 10:00 Empaglifozin 10 mg DAILY PO 12/29/24 15:15 Examination General Appearance: Cooperative. Well developed. Well nourished. NAD Head Exam: Normal inspection Neck Exam: Normal inspection. Non-tender. Normal alignment Pulmonary/Respiratory: Chest non-tender. Clear bilateral breath sounds, c rackles, no wheezing. Cardiovascular/Chest: Regular rate and rhythm. No murmurs. JVD. Peripheral Pulses: 2+ Radial (R). 2+ Radial (L). 2+ Pedal (R). 2+ Pedal (L) Abdominal Exam: Normal bowel sounds. Soft. normal abdomen, no visible veins, Nontender. No hepatospenomegaly. No masses Ankle Exam: 2+ ankle edema Lower extremities: 2+ lower extremity edema Neuro/Mental Status: A&O x4. Coherent. Thoughts/Psych: Normal thought pattern. Appropriate mood and affect. Good judgement and insight Skin Exam: Normal inspection. Normal color. Warm. Dry laboratory and microbiology Laboratory Tests 12/29/24 06:40 Test 12/29/24 06:40 Range/Units Serum Glucose 98 74-106 mg/dL Labs and/or images reviewed: Labs reviewed by me, Image(s) reviewed by me Problem List/Assessment/Plan Problem List/Assessment/Plan Acute decompensated heart failure with reduced ejection fraction less than 20%, new onset Atrial fibrillation possibly new onset, without RVR Hyponatremia, likely secondary to hypovolemia Essential hypertension Ruled out pulmonary embolism - EKG: Atrial fibrillation. Borderline prolonged QT - CXR: Cardiomegaly and central pulmonary vascular congestion suggestive of mild CHF - lower extremity Doppler: There is no sonographic evidence for DVT in the lower extremities. - echo: Severely dilated left ventricle. LVEF less than 20%. RV enlarged with significant dysfunction. Ouejkogi-fo-yplpik mitral regurgitation. Marked biatrial enlargement. Toisifjp-wi-ydhjzm tricuspid regurgitation. - started empagliflozin 10 mg p.o. daily - IV furosemide 40 mg b.i.d. - therapeutic Lovenox 110 mg subcutaneous b.i.d. - strict I&Os GERD - Protonix Morbid obesity, BMI 34.9 - counseled patient extensively about lifestyle modifications including diet and activity Hyperkalemia, now resolved - treatment for hyperkalemia protocol PUD prophylaxis: protonix 40mg Goals of care: Full code, discussed for >16 minutes on 12/29/2024 Plan discussed with patient Plan discussed with Dr. Haile Plan discussed with: Patient, Son, Other (RN) My Orders My Orders Orders - ALIA LAZARO Procedure Category Date Status Time Strict I & O MONSE 12/29/24 In Process 13:35 Abg W/ Co-Ox RT 12/29/24 Logged 13:35 Empagliflozin PHA 12/29/24 In Process (Jardiance) 15:15 Date of Service: Dec 29, 2024 Billing Provider: ED HAILE MD Common Visit Codes: [id number] INP/OBS CARE(HIGH) ALIA LAZARO Dec 29, 2024 17:00 ED HAILE MD Dec 30, 2024 15:44
[2024-12-29] MEDS ORDERED: CARVEDILOL 3.125 MG TAB PO SCH (22:00)
[2024-12-29] MEDS: ACETAMINOPHEN 325 MG TAB PO PRN (22:33)
[2024-12-30] VITALS (7 sets, daily range): BP systolic 99–124; BP diastolic 48–85; PULSE 75–115; RESP 16–20; TEMP 97.4–98.3; O2SAT 89–94
[2024-12-30 07:28] LABS: Basophils # (auto) 0 10 ^3/uL (0-0.2); Basophils % (auto) 0.6 % (0.0-2.0); Eosinophils # (auto) 0.1 10 ^3/uL (0-0.8); Eosinophils % (auto) 1.2 % (0.0-7.0); Hematocrit 41.5 % (41.0-53.0); Hemoglobin 13.9 g/dL (13.5-17.5); Lymphocytes # (auto) 0.7 10 ^3/uL (0.4-5.4); Mean Corpuscular Hemoglobin 33.7 pg (28.0-32.0); Mean Corpuscular Hgb Conc. 33.6 g/dL (32.0-36.0); Mean Corpuscular Volume 100.3 fL (80.0-100.0); Monocytes # (auto) 0.7 10 ^3/uL (0-1.3); Monocytes % (auto) 11.6 % (0.0-12.0); Neutrophils # (auto) 4.5 10 ^3/uL (1.6-8.6); Neutrophils % (auto) 74.6 % (37.0-80.0); Platelet Count (auto) 134 10^3/uL (140-450); Red Blood Cells 4.13 10^6/uL (4.5-5.90); Red Cell Distribution Width 14.4 % (11.8-14.3); White Blood Cell 6.1 10^3/uL (4.4-10.8)
[2024-12-30 07:34] LABS: Anion Gap 7 (5-15)
[2024-12-30 07:35] LABS: Calcium 9.5 mg/dL (8.7-10.4)
[2024-12-30 07:39] LABS: Glucose 100 mg/dL (74-106)
[2024-12-30 07:40] LABS: BUN/Creatinine Ratio 17.1 (10.0-20.0); Blood Urea Nitrogen 12 mg/dL (9-23)
[2024-12-30 07:53] LABS: Carbon Dioxide 32 mmol/L (20-31); Chloride 91 mmol/L (98-107); Sodium 130 mmol/L (136-145)
--- NOTE | 2024-12-30 11:23 | DVHPNRES ---
Progress Note Date Seen: Dec 30, 2024 Resident Creating Document: ALIA LAZARO RESIDENT Medical Necessity Reason Pt with a Central, PICC or Fol: No Subjective Review of Systems Patient is a 74-year-old male with past medical history of hypertension, GERD, dyslipidemia, prediabetes who came in due to shortness of breath. According to the patient, 5 weeks ago he developed a common cold-like illness and since then he has been experiencing increasing wheezing, orthopnea and difficulty catching his breath. Per patient, on multiple occasions he had to sit up to catch his breath. Per patient, around 2 weeks ago he started noticing swelling in bilateral lower extremity which progressively increased and prompted this visit to the hospital. On review of systems patient is complaining of fatigue, rhinorrhea, dry cough, shortness of breath and dyspnea. Echocardiogram showed ejection fraction less than 20% by visual estimate, right ventricular enlarged with significant dysfunction, severe dilated left ventricle, moderate to severe mitral regurgitation, marked biatrial enlargement, moderate to severe tricuspid regurgitation. 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 Quit smoking 30 years ago, prior to that smoked 1.5 pack per day for 20 years. Drinks alcohol every night, 2-3 glasses of wine. Denies using any drugs. Allergies: Denies Patient seen and examined at bedside. Patient is alert and oriented to time, place person and responding to all questions. Patient reports improving symptoms, however still continues to have 2+ lower extremity edema and trace crackles. Objective vital signs Vital Sign Date Time Temp Pulse Resp B/P (MAP) Pulse Ox O2 Delivery O2 Flow Rate FiO2 12/30/24 09:09 98.1 88 16 124/68 (86) 93 98.1 12/30/24 08:00 Nasal Cannula* 2 28 Total Intake and Output 12/29/24 12/29/24 12/30/24 15:00 23:00 07:00 Intake Total 500 ml 700 ml Output Total 700 ml 1700 ml Balance -200 ml -1000 ml medications Current Medications Medications Dose Ordered Sig/Joe Route Start Time Stop Time Status Last Admin Dose Admin Sodium Chloride 10 ml Q8HR IV 12/28/24 22:00 12/30/24 06:57 10 ML Acetaminophen 650 mg Q6HP PRN PO 12/28/24 20:45 12/29/24 22:33 650 MG Furosemide 40 mg BIDD IV 12/29/24 06:00 12/29/24 18:26 40 MG Pantoprazole Sodium 40 mg DAILY@0600 PO 12/29/24 06:00 12/30/24 06:57 40 MG Enoxaparin Sodium 110 mg Q12HR SC 12/29/24 10:00 12/30/24 09:31 110 MG Empaglifozin 10 mg DAILY PO 12/29/24 15:15 12/30/24 09:31 10 MG Examination General Appearance: Cooperative. Well developed. Well nourished. NAD Head Exam: Normal inspection Neck Exam: Normal inspection. Non-tender. Normal alignment Pulmonary/Respiratory: Chest non-tender. Clear bilateral breath sounds, c rackles, no wheezing. Cardiovascular/Chest: Regular rate and rhythm. No murmurs. JVD. Peripheral Pulses: 2+ Radial (R). 2+ Radial (L). 2+ Pedal (R). 2+ Pedal (L) Abdominal Exam: Normal bowel sounds. Soft. normal abdomen, no visible veins, Nontender. No hepatospenomegaly. No masses Ankle Exam: 2+ ankle edema Lower extremities: 2+ lower extremity edema Neuro/Mental Status: A&O x4. Coherent. Thoughts/Psych: Normal thought pattern. Appropriate mood and affect. Good judgement and insight Skin Exam: Normal inspection. Normal color. Warm. Dry laboratory and microbiology Laboratory Tests 12/30/24 06:50 Test 12/30/24 06:50 Range/Units Serum Glucose 100 74-106 mg/dL Labs and/or images reviewed: Labs reviewed by me, Image(s) reviewed by me Problem List/Assessment/Plan Problem List/Assessment/Plan Acute decompensated heart failure with reduced ejection fraction less than 20%, new onset Atrial fibrillation possibly new onset, without RVR Hyponatremia, likely secondary to hypovolemia Essential hypertension Ruled out pulmonary embolism - EKG: Atrial fibrillation. Borderline prolonged QT - CXR: Cardiomegaly and central pulmonary vascular congestion suggestive of mild CHF - lower extremity Doppler: There is no sonographic evidence for DVT in the lower extremities. - echo: Severely dilated left ventricle. LVEF less than 20%. RV enlarged with significant dysfunction. Zmjkfant-xh-ftvlji mitral regurgitation. Marked biatrial enlargement. Brywtmte-el-lebcws tricuspid regurgitation. - started empagliflozin 10 mg p.o. daily - IV furosemide 40 mg b.i.d. - therapeutic Lovenox 110 mg subcutaneous b.i.d. - strict I&Os GERD - Protonix Morbid obesity, BMI 34.9 - counseled patient extensively about lifestyle modifications including diet and activity Hyperkalemia, now resolved - treatment for hyperkalemia protocol PUD prophylaxis: protonix 40mg Goals of care: Full code, discussed for >16 minutes on 12/29/2024 Plan discussed with patient Plan discussed with Dr. Haile Plan discussed with: Patient, Other (RN) My Orders My Orders Orders - ALIA LAZARO Procedure Category Date Status Time Strict I & O MONSE 12/29/24 In Process 13:35 Abg W/ Co-Ox RT 12/29/24 Logged 13:35 Empagliflozin PHA 12/29/24 In Process (Jardiance) 15:15 Date of Service: Dec 30, 2024 Billing Provider: ED HAILE MD Common Visit Codes: [id number] INP/OBS CARE(HIGH) ALIA LAZARO Dec 30, 2024 11:23 ED HAILE MD Dec 30, 2024 15:50
--- NOTE | 2024-12-30 12:59 | DVHPN2 ---
Progress Note Date Seen: Dec 30, 2024 Resident Creating Document: ALONZO TINEO RESIDENT Medical Necessity Reason Pt with a Central, PICC or Fol: No Subjective Review of Systems Patient states feeling well, denies any chest pain, significant shortness of breath, dizziness, lightheadedness, abdominal pain, nausea, vomiting. He is currently on nasal cannula at 1 L titrating well above 92%. Vital signs are unremarkable. Objective vital signs Vital Sign Date Time Temp Pulse Resp B/P (MAP) Pulse Ox O2 Delivery O2 Flow Rate FiO2 12/30/24 09:09 98.1 88 16 124/68 (86) 93 98.1 12/30/24 08:00 Nasal Cannula* 2 28 Total Intake and Output 12/29/24 12/29/24 12/30/24 15:00 23:00 07:00 Intake Total 500 ml 700 ml Output Total 700 ml 1700 ml Balance -200 ml -1000 ml medications Current Medications Medications Dose Ordered Sig/Joe Route Start Time Stop Time Status Last Admin Dose Admin Sodium Chloride 10 ml Q8HR IV 12/28/24 22:00 12/30/24 06:57 10 ML Acetaminophen 650 mg Q6HP PRN PO 12/28/24 20:45 12/29/24 22:33 650 MG Furosemide 40 mg BIDD IV 12/29/24 06:00 12/29/24 18:26 40 MG Pantoprazole Sodium 40 mg DAILY@0600 PO 12/29/24 06:00 12/30/24 06:57 40 MG Enoxaparin Sodium 110 mg Q12HR SC 12/29/24 10:00 12/30/24 09:31 110 MG Empaglifozin 10 mg DAILY PO 12/29/24 15:15 12/30/24 09:31 10 MG Examination General: Awake, alert, comfortable appearing, in no acute distress. HEENT: Head is normocephalic and atraumatic. Pupils are equal, round, and reactive to light. Extraocular muscles are intact. No nasal discharge. No facial trauma. Intraoral exam shows moist mucous membranes with no tonsillar enlargement or exudate. Neck: Supple with no cervical lymphadenopathy No meningismus. No goiter. Heart: Regular rate without murmur, rub, or gallop. Lungs: Scattered bilateral crackles Abdomen: No external sign of injury. Bowel sounds are present. Abdomen is soft, nontender. No rebound, no guarding, no rigidity. There are no palpable masses. There is no flank pain on exam. Extremities: Strong peripheral pulses. Plus one bilateral leg pitting edema Skin: No rash. Neurologic: Cranial nerves II-XII intact without motor, sensory, or cerebellar deficit, no asterixis. laboratory and microbiology Laboratory Tests 12/30/24 06:50 Test 12/30/24 06:50 Range/Units Serum Glucose 100 74-106 mg/dL Labs and/or images reviewed: Labs reviewed by me, Image(s) reviewed by me Problem List/Assessment/Plan Problem List/Assessment/Plan Acute systolic CHF, new onset, NYHA class 3 Mitral regurgitation, moderate to severe Tricuspid regurgitation, moderate to severe Atrial fibrillation controlled rate, new onset Hypertension GERD Hyperkalemia Dilutional hyponatremia Obesity Plan/Recommendation Echocardiogram revealed severe dilated LV, ejection fraction of less than 20%, enlarged RV with dysfunction, moderate to severe mitral regurgitation, biatrial enlargement, moderate to severe tricuspid regurgitation Continue diuresis with Lasix 40 mg IV b.i.d. Recommended discharging with lasix 40mg po qd Recommend initiating coreg at low dose Continue GDMT: Beta-meaghan, Jardiance, Aldactone [id number]: 2 points Anticoagulate with therapeutic Lovenox 1 milligram/kilogram b.i.d., recommended discharging with eliquis 5mg po bid Recommended rate control with low dose beta meaghan Maintain potassium >4 and magnesium >2 Counseled on lifestyle modifications [facility]. Thank you for allowing us to participate in this patient's care. Please call if you have any questions or concerns. We will sign off from the case. Case was discussed with Dr. Conway Plan discussed with: Patient My Orders My Orders Orders - ALONZO TINEO RESIDENT Procedure Category Date Status Time Maintain Fluid MONSE 12/29/24 In Process Restrictions 14:15 Spironolactone PHA 12/30/24 Transmitted (Aldactone) 13:00 Spironolactone PHA 12/31/24 Transmitted (Aldactone) 10:00 ALONZO TINEO RESIDENT Dec 30, 2024 12:59
[2024-12-30] MEDS: SPIRONOLACTONE 25 MG TAB PO ONE (14:10)
--- NOTE | 2024-12-30 14:31 | ECG ---
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
[2024-12-31] VITALS (8 sets, daily range): BP systolic 92–131; BP diastolic 49–78; PULSE 60–101; RESP 17–20; TEMP 97.5–98.3; O2SAT 89–96
[2024-12-31 07:20] LABS: Basophils # (auto) 0 10 ^3/uL (0-0.2); Basophils % (auto) 0.2 % (0.0-2.0); Eosinophils # (auto) 0.1 10 ^3/uL (0-0.8); Hemoglobin 14.4 g/dL (13.5-17.5); Lymphocytes # (auto) 0.6 10 ^3/uL (0.4-5.4); Lymphocytes % (auto) 9.6 % (10.0-50.0); Mean Corpuscular Hemoglobin 34.6 pg (28.0-32.0); Mean Corpuscular Hgb Conc. 34.4 g/dL (32.0-36.0); Mean Corpuscular Volume 100.7 fL (80.0-100.0); Monocytes # (auto) 0.7 10 ^3/uL (0-1.3); Monocytes % (auto) 10.9 % (0.0-12.0); Neutrophils # (auto) 5.2 10 ^3/uL (1.6-8.6); Neutrophils % (auto) 78.3 % (37.0-80.0); Nucleated Red Blood Cells % 0.1 %; Platelet Count (auto) 139 10^3/uL (140-450); Red Blood Cells 4.17 10^6/uL (4.5-5.90); Red Cell Distribution Width 14.5 % (11.8-14.3); White Blood Cell 6.7 10^3/uL (4.4-10.8)
[2024-12-31 07:33] LABS: Anion Gap 6 (5-15); Calcium 9.9 mg/dL (8.7-10.4)
[2024-12-31 07:38] LABS: BUN/Creatinine Ratio 16.2 (10.0-20.0); Blood Urea Nitrogen 12 mg/dL (9-23)
[2024-12-31 07:39] LABS: Carbon Dioxide 36 mmol/L (20-31); Chloride 91 mmol/L (98-107); Glucose 112 mg/dL (74-106); Sodium 133 mmol/L (136-145)
[2024-12-31] MEDS: SPIRONOLACTONE 25 MG TAB PO SCH (09:13)
--- NOTE | 2024-12-31 09:13 | DVHPNRES ---
Progress Note Date Seen: Dec 31, 2024 Resident Creating Document: ALIA LAZARO RESIDENT Medical Necessity Reason Pt with a Central, PICC or Fol: No Subjective Review of Systems Patient is a 74-year-old male with past medical history of hypertension, GERD, dyslipidemia, prediabetes who came in due to shortness of breath. According to the patient, 5 weeks ago he developed a common cold-like illness and since then he has been experiencing increasing wheezing, orthopnea and difficulty catching his breath. Per patient, on multiple occasions he had to sit up to catch his breath. Per patient, around 2 weeks ago he started noticing swelling in bilateral lower extremity which progressively increased and prompted this visit to the hospital. On review of systems patient is complaining of fatigue, rhinorrhea, dry cough, shortness of breath and dyspnea. Echocardiogram showed ejection fraction less than 20% by visual estimate, right ventricular enlarged with significant dysfunction, severe dilated left ventricle, moderate to severe mitral regurgitation, marked biatrial enlargement, moderate to severe tricuspid regurgitation. 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 Quit smoking 30 years ago, prior to that smoked 1.5 pack per day for 20 years. Drinks alcohol every night, 2-3 glasses of wine. Denies using any drugs. Allergies: Denies Patient seen and examined at bedside. Patient is alert and oriented to time, place person and responding to all questions. Patient reports improving symptoms. Lower extremity edema has improved to +1. Objective vital signs Vital Sign Date Time Temp Pulse Resp B/P (MAP) Pulse Ox O2 Delivery O2 Flow Rate FiO2 12/31/24 08:00 90 18 96 Nasal Cannula* 2 28 12/31/24 06:02 131/65 12/31/24 05:00 97.9 97.9 Total Intake and Output 12/30/24 12/30/24 12/31/24 15:00 23:00 07:00 Intake Total 500 ml 200 ml Output Total 2700 ml 5060 ml Balance -2200 ml -4860 ml medications Current Medications Medications Dose Ordered Sig/Joe Route Start Time Stop Time Status Last Admin Dose Admin Sodium Chloride 10 ml Q8HR IV 12/28/24 22:00 12/31/24 06:02 10 ML Acetaminophen 650 mg Q6HP PRN PO 12/28/24 20:45 12/29/24 22:33 650 MG Pantoprazole Sodium 40 mg DAILY@0600 PO 12/29/24 06:00 12/31/24 06:02 40 MG Enoxaparin Sodium 110 mg Q12HR SC 12/29/24 10:00 12/30/24 21:34 110 MG Empaglifozin 10 mg DAILY PO 12/29/24 15:15 12/30/24 09:31 10 MG Spironolactone 25 mg DAILY PO 12/31/24 10:00 Furosemide 40 mg DAILY PO 12/31/24 10:00 UNV Examination General Appearance: Cooperative. Well developed. Well nourished. NAD Head Exam: Normal inspection Neck Exam: Normal inspection. Non-tender. Normal alignment Pulmonary/Respiratory: Chest non-tender. Clear bilateral breath sounds, c rackles, no wheezing. Cardiovascular/Chest: Regular rate and rhythm. No murmurs. JVD. Peripheral Pulses: 2+ Radial (R). 2+ Radial (L). 2+ Pedal (R). 2+ Pedal (L) Abdominal Exam: Normal bowel sounds. Soft. normal abdomen, no visible veins, Nontender. No hepatospenomegaly. No masses Ankle Exam: 2+ ankle edema Lower extremities: 1+ lower extremity edema Neuro/Mental Status: A&O x4. Coherent. Thoughts/Psych: Normal thought pattern. Appropriate mood and affect. Good judgement and insight Skin Exam: Normal inspection. Normal color. Warm. Dry laboratory and microbiology Laboratory Tests 12/31/24 06:56 Test 12/31/24 06:56 Range/Units Serum Glucose 112 H 74-106 mg/dL Labs and/or images reviewed: Labs reviewed by me, Image(s) reviewed by me Problem List/Assessment/Plan Problem List/Assessment/Plan Acute decompensated heart failure with reduced ejection fraction less than 20%, new onset Atrial fibrillation possibly new onset, without RVR Hyponatremia, likely secondary to hypovolemia Essential hypertension Ruled out pulmonary embolism - EKG: Atrial fibrillation. Borderline prolonged QT - CXR: Cardiomegaly and central pulmonary vascular congestion suggestive of mild CHF - lower extremity Doppler: There is no sonographic evidence for DVT in the lower extremities. - echo: Severely dilated left ventricle. LVEF less than 20%. RV enlarged with significant dysfunction. [id number] mitral regurgitation. Marked biatrial enlargement. Fhwydtit-ki-seuhvb tricuspid regurgitation. - started empagliflozin 10 mg p.o. daily - IV furosemide 40 mg b.i.d.. Transitioned to Lasix 40 mg p.o. daily starting from 01/01/2025 - therapeutic Lovenox 110 mg subcutaneous b.i.d. - strict I&Os - [facility] to optimize GDMT and consider for future life vest GERD - Protonix Morbid obesity, BMI 34.9 - counseled patient extensively about lifestyle modifications including diet and activity Hyperkalemia, now resolved - treatment for hyperkalemia protocol PUD prophylaxis: protonix 40mg Goals of care: Full code, discussed for >16 minutes on 12/29/2024 Plan discussed with patient Plan discussed with Dr. Haile Plan discussed with: Patient, Other (RN) Date of Service: Dec 31, 2024 Billing Provider: ED HAILE MD Common Visit Codes: [id number] INP/OBS CARE(HIGH) ALIA LAZARO Dec 31, 2024 09:13 ED HAILE MD Dec 31, 2024 21:06
[2024-12-31] MEDS: FUROSEMIDE 20 MG TAB PO SCH (10:00)
--- NOTE | 2024-12-31 10:32 | CONS ---
Pharmacy Clinical Information: CQM HF (EBBB and ACEI/ARB/ARNI missing). Per cardiology "Recommend initiating coreg at low dose" and "Continue GDMT: Beta-meaghan, Jardiance, Aldactone". Patient also had episode of hyperkalemia upon admission but has been resolved since and it should also be noted that there are a few low BP readings. Please consider initiating EBBB and restarting patients home medication Benazepril 40mg when appropriate. PILO CRISTINA PHARMACIST Dec 31, 2024 10:32
[2025-01-01 01:00] VITALS: BP 113/69; PULSE 89; RESP 18; TEMP 98.1; O2SAT 96
[2025-01-01 05:00] VITALS: BP 112/69; PULSE 83; RESP 18; TEMP 97.8; O2SAT 95
[2025-01-01 07:06] LABS: Potassium 4.1 mmol/L (3.5-5.1)
[2025-01-01 07:08] LABS: Calcium 9.8 mg/dL (8.7-10.4)
[2025-01-01 07:09] LABS: Basophils # (auto) 0 10 ^3/uL (0-0.2); Basophils % (auto) 0.4 % (0.0-2.0); Eosinophils # (auto) 0.1 10 ^3/uL (0-0.8); Eosinophils % (auto) 1.1 % (0.0-7.0); Hematocrit 41.6 % (41.0-53.0); Lymphocytes # (auto) 0.7 10 ^3/uL (0.4-5.4); Lymphocytes % (auto) 12.1 % (10.0-50.0); Mean Corpuscular Hemoglobin 33.8 pg (28.0-32.0); Mean Corpuscular Hgb Conc. 33.6 g/dL (32.0-36.0); Mean Corpuscular Volume 100.7 fL (80.0-100.0); Monocytes # (auto) 0.7 10 ^3/uL (0-1.3); Monocytes % (auto) 12.2 % (0.0-12.0); Neutrophils # (auto) 4.4 10 ^3/uL (1.6-8.6); Neutrophils % (auto) 74.2 % (37.0-80.0); Nucleated Red Blood Cells % 0.1 %; Platelet Count (auto) 130 10^3/uL (140-450); Red Blood Cells 4.13 10^6/uL (4.5-5.90); Red Cell Distribution Width 14.4 % (11.8-14.3)
[2025-01-01 07:12] LABS: BUN/Creatinine Ratio 21.5 (10.0-20.0); Blood Urea Nitrogen 14 mg/dL (9-23)
[2025-01-01 07:13] LABS: Anion Gap 8 (5-15); Carbon Dioxide 33 mmol/L (20-31); Chloride 92 mmol/L (98-107); Glucose 110 mg/dL (74-106); Sodium 133 mmol/L (136-145)
[2025-01-01 08:00] VITALS: PULSE 91; PULSE 96; RESP 18; O2SAT 90
[2025-01-01 09:00] VITALS: BP 122/77; PULSE 91; RESP 18; TEMP 97.5; O2SAT 90
[2025-01-01 12:59] VITALS: BP 105/72; PULSE 104; RESP 18; TEMP 98; O2SAT 93
[2025-01-01] MEDS ORDERED: METO25TA93 PO (13:20)
[2025-01-01] MEDS ORDERED: VALS1TAB56 PO (13:20)
[2025-01-01] MEDS ORDERED: FURO40TA4 PO (13:20)
[2025-01-01] MEDS ORDERED: EMPA1TAB PO (13:20)
[2025-01-01] MEDS ORDERED: SPIR25TA PO (13:20)
[2025-01-01] MEDS ORDERED: APIX5TAB PO (13:23)
--- NOTE | 2025-01-01 13:28 | DVHDSRES ---
Discharge Summary Date of Admission Resident Creating Document: ALIA LAZARO RESIDENT Dec 28, 2024 at 20:32 Date of Discharge: Jan 01, 2025 Admitting Diagnosis sob Labs/Diagnostic Data: Laboratory Results Test 01/01/25 05:03 12/31/24 06:56 12/29/24 14:37 12/29/24 14:00 White Blood Count 6.0 10^3/uL (4.4-10.8) Red Blood Count 4.13 10^6/uL (4.5-5.90) Hemoglobin 14.0 g/dL (13.5-17.5) Hematocrit 41.6 % (41.0-53.0) Mean Corpuscular Volume 100.7 fL (80.0-100.0) Mean Corpuscular Hemoglobin 33.8 pg (28.0-32.0) Mean Corpuscular Hemoglobin Concent 33.6 g/dL (32.0-36.0) Red Cell Distribution Width 14.4 % (11.8-14.3) Platelet Count 130 10^3/uL (140-450) Mean Platelet Volume 7.3 fL (6.9-10.8) Neutrophils (%) (Auto) 74.2 % (37.0-80.0) Lymphocytes (%) (Auto) 12.1 % (10.0-50.0) Monocytes (%) (Auto) 12.2 % (0.0-12.0) Eosinophils (%) (Auto) 1.1 % (0.0-7.0) Basophils (%) (Auto) 0.4 % (0.0-2.0) Neutrophils # (Auto) 4.4 10 ^3/uL (1.6-8.6) Lymphocytes # (Auto) 0.7 10 ^3/uL (0.4-5.4) Monocytes # (Auto) 0.7 10 ^3/uL (0-1.3) Eosinophils # (Auto) 0.1 10 ^3/uL (0-0.8) Basophils # (Auto) 0 10 ^3/uL (0-0.2) Nucleated Red Blood Cells 0.1 % Sodium Level 133 mmol/L (136-145) Potassium Level 4.1 mmol/L (3.5-5.1) Chloride Level 92 mmol/L (98-107) Carbon Dioxide Level 33 mmol/L (20-31) Anion Gap 8 (5-15) Blood Urea Nitrogen 14 mg/dL (9-23) Creatinine 0.65 mg/dL (0.700-1.30) Glomerular Filtration Rate Calc 99 mL/min (>90) BUN/Creatinine Ratio 21.5 (10.0-20.0) Serum Glucose 110 mg/dL (74-106) Calcium Level 9.8 mg/dL (8.7-10.4) Magnesium Level 2.1 mg/dL (1.6-2.6) Blood Gas Specimen Type Arterial Blood Gas Sample Site Left radial Blood Gas Patient Temperature 37.0 Arterial Blood Date Drawn [id number] Arterial Blood pH 7.466 (7.350-7.450) Arterial Blood Partial Pressure CO2 41.1 mmHg (35.0-48.0) Arterial Blood Partial Pressure O2 54.2 mmHg (83.0-108.0) Arterial Blood HCO3 29.0 mmol/L (21.0-28.0) Arterial Blood Oxygen Saturation 88.2 % (94.0-98.0) Arterial Blood Base Excess 4.8 mmol/L (-2.0-3.0) Arterial Blood Oxyhemoglobin 86.1 % (94.0-98.0) Arterial Blood Carboxyhemoglobin 1.9 % (0.5-1.5) Arterial Blood Methemoglobin 0.5 % (0.0-1.5) [facility] Test Modified Blood Gas Total Hemoglobin 14.80 g/dL (13.5-17.5) Blood Gas Modality Room air FiO2 % 21.0 Blood Gas Critical Value Read Back Yes Blood Gas Notified Whom sylvester Alicia md Blood Gas Notified Time [id number] Blood Gas Notified By Kait kraus rrt Lactic Acid Level 0.9 mmol/L (0.4-2.0) Test 12/29/24 07:54 12/29/24 06:40 12/28/24 22:41 12/28/24 22:39 Influenza Type A Antigen Negative (Negative) Influenza Type B Antigen Negative (Negative) SARS-CoV-2 Antigen (Rapid) Negative (NEGATIVE) Total Bilirubin 2.0 mg/dL (0.2-1.0) Aspartate Amino Transferase (AST) 28 U/L (13-40) Alanine Aminotransferase (ALT) 20 U/L (7-40) Alkaline Phosphatase 75 U/L (46-116) Total Protein 6.3 g/dL (5.7-8.2) Albumin 4.5 g/dL (3.2-4.8) POC Glucose 117 mg/dl (70-106) Prothrombin Time 11.6 sec (9.3-11.8) Prothrombin Time INR 1.11 (0.9-1.15) Activated Partial Thromboplast Time 26.2 SEC (24.5-34.5) D-Dimer, Quantitative 2.07 mg/L FEU (0.0-0.49) Hemoglobin A1c 5.6 % A1C (<5.7) Triglycerides Level 54 mg/dL (< 150) Cholesterol Level 157 mg/dL (< 200) LDL Cholesterol 83 mg/dL (< 100) HDL Cholesterol 65 mg/dL (40-59) Thyroid Stimulating Hormone (TSH) 2.47 uIU/mL (0.55-4.78) Plasma/Serum Blood Alcohol < 3.0 mg/dL (<10) Test 12/28/24 16:39 12/28/24 15:22 12/28/24 14:37 Urine Color Straw (Yellow) Urine Clarity Clear (Clear) Urine pH 6.5 (5.0-9.0) Urine Specific [place] 1.004 (1.001-1.035) Urine Protein Negative (Negative) Urine Ketones Negative (Negative) Urine Blood Negative /uL (Negative) Urine Nitrite Negative (Negative) Urine Bilirubin Negative (Negative) Urine Urobilinogen Normal mg/dL (Negative) Urine Leukocyte Esterase Negative /uL (Negative) Urine RBC None seen /hpf (0 - 3) Urine Microscopic WBC < 1 /HPF (0-3) Urine Squamous Epithelial Cells None seen /hpf (<5) Urine Bacteria None seen /hpf (None Seen) Urine Glucose Normal mg/dL (Normal) Urine Opiates Screen Neg (NEGATIVE) Urine Fentanyl Screen Neg (NEGATIVE) Urine Barbiturates Screen Neg (NEGATIVE) Urine Phencyclidine Screen Neg (NEGATIVE) Urine Amphetamines Screen Neg (NEGATIVE) Urine Benzodiazepines Screen Neg (NEGATIVE) Urine Cocaine Screen Neg (NEGATIVE) Urine Cannabinoids Screen Neg (NEGATIVE) Troponin I High Sensitivity 10 ng/L (</=54) B-Type Natriuretic Peptide 1112.71 pg/mL (0-100) Other Laboratory Tests 01/01/25 05:03 Brief Hx & Hospital Course: Patient is a 74-year-old male with past medical history of hypertension, GERD, dyslipidemia, prediabetes who came in due to shortness of breath. According to the patient, 5 weeks ago he developed a common cold-like illness and since then he has been experiencing increasing wheezing, orthopnea and difficulty catching his breath. Per patient, on multiple occasions he had to sit up to catch his breath. Per patient, around 2 weeks ago he started noticing swelling in bilateral lower extremity which progressively increased and prompted this visit to the hospital. On review of systems patient is complaining of fatigue, rhinorrhea, dry cough, shortness of breath and dyspnea. Echocardiogram showed ejection fraction less than 20% by visual estimate, right ventricular enlarged with significant dysfunction, severe dilated left ventricle, moderate to severe mitral regurgitation, marked biatrial enlargement, moderate to severe tricuspid regurgitation. Hospital course: EKG showed atrial fibrillation and a borderline prolonged QT. Chest x-ray showed cardiomegaly and central pulmonary venous congestion suggestive of mild CHF. Pulmonary embolism was ruled out, lower extremity Doppler showed no evidence of DVT in the bilateral lower extremities. Echocardiogram showed EF less than 20%, right ventricle enlarged with significant dysfunction. Exhjocck-js-kiittb mitral regurgitation. Marked biatrial enlargement and tqwpyyfc-if-glzkzn tricuspid regurgitation. Patient was progressively started on GDM T including Jardiance, metoprolol and spironolactone. Therapeutic Lovenox 110 mg b.i.d. were also started for atrial fibrillation. Strict I&Os were maintained. Hyperkalemia was treated with hyperkalemia protocol. Patient was counseled extensively in great detail explaining the pathology of his conditions in the need for medication adherence and regular follow up. On the day of discharge, patient appeared well lower extremity edema had significantly reduced from +3 on admission to none. Patient had improved orthopnea, stable vital signs. Patient was instructed to follow up at the [facility] per Cardiology instructions to optimize his GDM T, for a left heart catheterization and a possibility of life vest placement. His hospital course was uncomplicated. General Appearance: Cooperative. Well developed. Well nourished. NAD Head Exam: Normal inspection Neck Exam: Normal inspection. Non-tender. Normal alignment Pulmonary/Respiratory: Chest non-tender. Clear bilateral breath sounds, no wheezing. Cardiovascular/Chest: Regular rate and rhythm. No murmurs. Peripheral Pulses: 2+ Radial (R). 2+ Radial (L). 2+ Pedal (R). 2+ Pedal (L) Abdominal Exam: Normal bowel sounds. Soft. normal abdomen, no visible veins, Nontender. No hepatospenomegaly. No masses Ankle Exam: 2+ ankle edema Lower extremities: No lower extremity edema Neuro/Mental Status: A&O x4. Coherent. Thoughts/Psych: Normal thought pattern. Appropriate mood and affect. Good judgement and insight Skin Exam: Normal inspection. Normal color. Warm. Dry Condition at Discharge: Fair Final Diagnosis/Problems List Acute decompensated heart failure with reduced ejection fraction less than 20%, new onset Atrial fibrillation possibly new onset, without RVR Hyponatremia, likely secondary to hypovolemia Essential hypertension Ruled out pulmonary embolism GERD Morbid obesity, BMI 34.9 Hyperkalemia, now resolved Discharge Disposition: Home Discharge Instruct/Medications Diet: Cardiac 2g Na,low cholest Diet comment: Please adhere to a low-salt diet Activity: No Restrictions, As Tolerated Follow Up/Referral: Please follow up with Cardiology at the [facility] at your earliest for optimization of GDMT and possible LifeVest Medications: Apixaban 5 mg twice a day Empagliflozin 10 mg daily Furosemide 40 mg daily as needed Metoprolol succinate 25 mg twice a day Spironolactone 25 mg p.o. daily Valsartan 40 mg p.o. daily Discontinue benazepril Discontinue hydrochlorothiazide Continue other home medications Discharge Statement: "Patient was advised to return to the ER or call 911 if any headaches, dizziness, shortness of breath, chest pain, abdominal pain, bleeding, fevers, or worsening of medical condition. Patient was counseled about treatment plan, medications, possible side effects, patientverbalized understanding. All questions were answered to the best of my ability. This discharge took greater then 30 minutes in planning, reviewing documentation, counseling the patient, and discussing with other team members." ASSESSMENT ASSESSMENT Assessment Acute decompensated heart failure with reduced ejection fraction less than 20%, new onset Atrial fibrillation possibly new onset, without RVR Hyponatremia, likely secondary to hypovolemia Essential hypertension Ruled out pulmonary embolism GERD Morbid obesity, BMI 34.9 Hyperkalemia, now resolved Date of Service: Jan 01, 2025 Billing Provider: ED HAILE MD Common Visit Codes: 41451-[id number] DISCH DAY >30min ALAI LAZARO Jan 01, 2025 13:28 ED HAILE MD Jan 05, 2025 16:07
[2025-01-01 15:49] VITALS: BP 105/72; PULSE 89; RESP 18; TEMP 98; O2SAT 93
[2025-01-01] MEDS: METOPROLOL SUCCINATE XL 50 MG TAB PO SCH (17:00)
== END 2025-01-01 18:30 | disposition home or self-care (01) | DRG 291 ==
LOC: ER 13:28 → TELE 20:32 → OVERFLOW 12-29 16:26 → WEST WING 12-29 19:50 → OVERFLOW 12-30 13:18 → TELE-WESTW 12-30 13:33
PROVIDERS: ADMIT Student in an Organized Health Care Education/Training Program; ATTEND Emergency Medicine
DX: I11.0 Hypertensive heart disease with heart failure (principal); I50.23 Acute on chronic systolic (congestive) heart failure; E87.1 Hypo-osmolality and hyponatremia; I48.91 Unspecified atrial fibrillation; Z20.822 Contact with and (suspected) exposure to COVID-19; K21.9 Gastro-esophageal reflux disease without esophagitis; E66.01 Morbid (severe) obesity due to excess calories; I08.1 Rheumatic disorders of both mitral and tricuspid valves; E87.5 Hyperkalemia; E86.1 Hypovolemia; Z83.3 Family history of diabetes mellitus; Z87.891 Personal history of nicotine dependence; Z68.35 Body mass index [BMI] 35.0-35.9, adult
CPT/HCPCS: 36415; 36600; 71045; 80048; 80053; 80061; 80307; 80320; 81001; 82805; 82962; 83036; 83605; 83735; 83880; 84443; 84484; 85025; 85379; 85610; 85730; 87426; 87804; 93005; 93306; 93970; 96374; 96375; 99291; G0378; J1815

== ENCOUNTER 2025-01-05 11:31 | Inpatient (IN) | payer OTHER, MEDICARE ==
[~2025-01-05] VITALS: Ht 177.8 cm; Wt 125.0 kg
[~2025-01-05 11:31] MED LIST: AMLO1TAB23 PO; APIX5TAB PO; ASPI81CH59 PO; CHOL20007 PO; EMPA1TAB PO; FURO40TA4 PO; METO25TA93 PO; PANT1INJ3 PO; SPIR25TA PO; VALS1TAB56 PO
--- NOTE | 2025-01-05 13:16 | ED.PDOC ---
SOB-HPI HPI Comments HPI: 74 y/o M, presents to the ED for CC of shortness of breath. Patient states, that he has been experiencing shortness of breath with associated symptoms of weight gain since last week. Patient relays, that he was admitted to [facility] on 12/28/24 for DX:CHF and was discharged on 01/01/25; was relayed to return to the ED if he saw any fluctuation in weight. Patient comments on, shortness of breath worsening with exertion . No other symptoms or modifying factors at this time. Initial Vital Signs: Temp : 97.6 BP: 117/81 HR: 68 RR: 20 SpO2: 90 Past Medical History: CHF, HTN Past Surgical History: HERNIA Social History: Denies smoking, ETOH, or drug use. Medications: Allergies: NKDA hayley: HPI: Poor Historian. Past Medical History: Past Surgical History: REVIEW OF SYSTEMS: CONSTITUTIONAL: Denies acute: fever, diaphoresis, chills, HEAD: Denies acute: headache, photophobia Eyes: Denies acute: Double vision, vision loss, eye pain, eye discharge. EARS: Denies acute: tinnitus, hearing loss, ear discharge, ear pain, THROAT: Denies acute: sore throat, swelling, difficulty swallowing , pain with swallowing, change in voice. NECK: Denies acute: neck pain, neck swelling, stiff neck. HEART: Denies acute : chest pain, palpitations, LUNGS: Denies acute: , wheezing, cough, hemoptysis ABDOMEN: Denies acute: abdominal pain, Nausea, Vomiting, diarrhea, melena , hematemesis, hematochezia SKIN: Denies acute: rash, redness, lesions, itchiness. EXTREMITIES: Denies acute: calf pain, numbness, tingling, weakness, denies pain in extremity. Denies acute: Low back pain. Neuro: Denies acute: focal neurological deficit, motor or sensory focal neurological deficit, tremors, seizure like activity, confusion, dizziness, change in mental status, loss of bowel or bladder function, cauda equina like symptoms. : Denies acute: dysuria, hematuria, flank pain, increase in urinary frequency. PSYCH: Denies acute: hallucination, suicidal ideation, homicidal ideation. PHYSICAL EXAM: General: no acute distress, awake and alert. Head: normocephalic, atraumatic. Neck: supple, trachea is midline, no swelling. Throat: Normal phonation. Eyes:, no erythema, no purulent discharge, no proptosis, no icterus. Heart: regular rate, regular rhythm, no significant murmur appreciated. Lungs: no apparent respiratory distress, Able to speak in full sentences. No wheezing, no rhonchi, no crackles. No stridors Clear to auscultation bilaterally. Abdomen: non tender to palpation, non distended, soft, no guarding, no rebound, + bowel sounds. Obese. Neuro: Awake, Alert, oriented to name, self, situation, follows commands GCS=15. Speech is normal. Skin: no petechia, no purpura, no cyanosis, non-pale, not jaundice. Lower extremities: --3/4 bilateral- Pitting edema no deformity, no focal swelling, no calf TTP. Makes eye contact. moves all four extremities. Face: no apparent facial droop. ED COURSE: Chief Complaint: Shortness of Breath Time Seen by MD: 13:00 [facility] Care Provider: [facility] Reviewed notes: Nurses Notes, Medications, Allergies Information Source: Patient, Spouse Mode of Arrival: Wheelchair Severity: Mild Timing: Weeks Duration: Since onset Context: With Light Exertion PE Risk Factors: None History of: None Prehospital treatment: None Modifying Factors: Nothing Associated Signs and Symptoms: None Was a procedure done? Was a procedure done?: No Differential Dx Differential Diagnosis: Other (DDx include ACS, unstable angina, anxiety, PE, pneumothroax, neoplasm, cardiac ischemia, COPD, asthma, CHF, pleural effusion, tobacco abuse, pneumonia, hypoxia, hypercapnia, anemia., infection/sepsis., pulmonary edema. Asthma, Cardiac tamponade, infection.) X-Ray, Labs, Meds, VS Vital Signs Date Time Temp Pulse Resp B/P (MAP) Pulse Ox O2 Delivery O2 Flow Rate FiO2 01/05/25 12:55 97.6 68 20 117/81 (93) 95 Lab Test 01/05/25 15:32 01/05/25 13:49 01/05/25 12:59 Range/Units Troponin I High Sensitivity 10 11 </=54 ng/L White Blood Count 6.1 4.4-10.8 10^3/uL Red Blood Count 4.11 L 4.5-5.90 10^6/uL Hemoglobin 13.9 13.5-17.5 g/dL Hematocrit 41.1 41.0-53.0 % Mean Corpuscular Volume 99.9 80.0-100.0 fL Mean Corpuscular Hemoglobin 33.7 H 28.0-32.0 pg Mean Corpuscular Hemoglobin Concent 33.7 32.0-36.0 g/dL Red Cell Distribution Width 14.5 H 11.8-14.3 % Platelet Count 160 140-450 10^3/uL Mean Platelet Volume 7.2 6.9-10.8 fL Neutrophils (%) (Auto) 75.7 37.0-80.0 % Lymphocytes (%) (Auto) 12.5 10.0-50.0 % Monocytes (%) (Auto) 10.7 0.0-12.0 % Eosinophils (%) (Auto) 0.8 0.0-7.0 % Basophils (%) (Auto) 0.3 0.0-2.0 % Neutrophils # (Auto) 4.6 1.6-8.6 10 ^3/uL Lymphocytes # (Auto) 0.8 0.4-5.4 10 ^3/uL Monocytes # (Auto) 0.7 0-1.3 10 ^3/uL Eosinophils # (Auto) 0 0-0.8 10 ^3/uL Basophils # (Auto) 0 0-0.2 10 ^3/uL Nucleated Red Blood Cells 0.1 % Sodium Level 127 #L 136-145 mmol/L Potassium Level 4.4 3.5-5.1 mmol/L Chloride Level 89 L 98-107 mmol/L Carbon Dioxide Level 31 20-31 mmol/L Anion Gap 7 5-15 Blood Urea Nitrogen 19 9-23 mg/dL Creatinine 0.68 L 0.700-1.30 mg/dL Glomerular Filtration Rate Calc 98 >90 mL/min BUN/Creatinine Ratio 27.9 H 10.0-20.0 Serum Glucose 101 74-106 mg/dL Calcium Level 9.7 8.7-10.4 mg/dL Total Bilirubin 1.7 H 0.2-1.0 mg/dL Aspartate Amino Transferase (AST) 26 13-40 U/L Alanine Aminotransferase (ALT) 31 7-40 U/L Alkaline Phosphatase 64 46-116 U/L B-Type Natriuretic Peptide 1274.45 0-100 pg/mL Total Protein 6.3 5.7-8.2 g/dL Albumin 4.6 3.2-4.8 g/dL Urine Color Light-yellow Yellow Urine Clarity Clear Clear Urine pH 7.0 5.0-9.0 Urine Specific [place] 1.012 1.001-1.035 Urine Protein Negative Negative Urine Ketones Negative Negative Urine Blood Negative Negative /uL Urine Nitrite Negative Negative Urine Bilirubin Negative Negative Urine Urobilinogen Normal Negative mg/dL Urine Leukocyte Esterase Negative Negative /uL Urine RBC <1 0 - 3 /hpf Urine Microscopic WBC 1 0-3 /HPF Urine Squamous Epithelial Cells None seen <5 /hpf Urine Bacteria None seen None Seen /hpf Urine Glucose Normal Normal mg/dL Current Medications Medications (Trade) Dose Ordered Sig/Joe Route Start Time Stop Time Status Last Admin Furosemide (Lasix Injection) 40 mg ONCE ONCE IV 01/05/25 13:00 01/05/25 13:01 DC 01/05/25 20:48 [place] [address] Ph: [phone] DIAGNOSTIC IMAGING Diagnostic Imaging Report : [id number] Signed PATIENT: MILLICENT HAWKINS ACCT: [id number] UNIT: [id number] : 1950 LOC: ER ROOM / BED: / AGE / SEX: 74 / M ADM STATUS: REG ER SERVICE 1253 ORDERING PHYSICIAN: CAMERON SENIOR DO PROCEDURE(s): CXRP - CHEST PORTABLE REASON: sob ORDER NUMBER(s): [id number], ACCESSION NUMBER(s): [id number] CHEST RADIOGRAPH Indication: sob Technique: Single frontal view of the chest was obtained COMPARISON: XY CHEST PORTABLE on DOS: 12/28/24 FINDINGS: Lines and Tubes: None Lungs: Pulmonary vascular congestion Pleura: No effusion. No pneumothorax. Cardiomediastinal contours: Cardiomegaly Bones: Unremarkable IMPRESSION: Pulmonary vascular congestion. ATED BY: JC PRIEST MD DICTATED DATE/TIME: 01/05/25 1334 SIGNED BY: JC PRIEST MD SIGNED DATE/TIME: 01/05/25 1334 CC: Time of 1ST Reevaluation: 13:30 Reevaluation 1ST: Unchanged Patient Education/Counseling: Diagnosis, Treatment Family Education/Counseling: No Family Present Comments Patient presented with the above HPI.---SHORTNESS OF BREATH ---workup was initiated. patient was found with the above mentioned diagnosis. the following medications were ordered: FUROSEMIDE INJECTION please refer to order lists of meds and tests obtained by myself Dr. Senior. Patient ED course and VS have been stabilized. Patient has been reassessed in the ED and remained in a stable condition. Pertinent incidental findings were discussed with the patient and/or family. Patient/family voices understanding and is agreeable with plan. Patient has been observed in the ED adequate length of time to insure improvement/stability. Escalation of care considered: Consideration of escalation to observation or admission Patient was ADMITTED to the medicine team for further evaluation and treatment of their presentation. However I was made aware that the patient decided to leave against medical advice. Patient has not picked up his prescription medications from his most recent discharge because he is waiting for the [facility] to mail it to him. He is requesting some outpatient Lasix pills until he gets his medication in the mail. Hospitalist saw the patient. Please see their consultation notes and recommendations. All the reports of any imaging studies that were ordered by myself were reviewed by myself. Departure 1 Departure Time of Disposition: 13:57 Impression: Primary Impression: CHF exacerbation Additional Impressions: Hyponatremia Left against medical advice Disposition: ADMITTED INPATIENT Admit to: Tele Condition: Guarded Additional Instructions: You are leaving against medical advice. Please seek medical attention IRENE. Return to the emergency department if you change your mind. Recheck your labs in 24 hours. [place] [address] Ph: [phone] DIAGNOSTIC IMAGING Diagnostic Imaging Report : [id number] Signed PATIENT: MILLICENT HAWKINS ACCT: [id number] UNIT: [id number] : 1950 LOC: ER ROOM / BED: / AGE / SEX: 74 / M ADM STATUS: REG ER SERVICE 1253 ORDERING PHYSICIAN: CAMERON SENIOR DO PROCEDURE(s): CXRP - CHEST PORTABLE REASON: sob ORDER NUMBER(s): [id number], ACCESSION NUMBER(s): [id number] CHEST RADIOGRAPH Indication: sob Technique: Single frontal view of the chest was obtained COMPARISON: XY CHEST PORTABLE on DOS: 12/28/24 FINDINGS: Lines and Tubes: None Lungs: Pulmonary vascular congestion Pleura: No effusion. No pneumothorax. Cardiomediastinal contours: Cardiomegaly Bones: Unremarkable IMPRESSION: Pulmonary vascular congestion. ATED BY: JC PRIEST MD DICTATED DATE/TIME: 01/05/25 1334 SIGNED BY: JC PRIEST MD SIGNED DATE/TIME: 01/05/25 1334 CC: e-Prescriptions Furosemide (Lasix) 20 Mg Tb 2 TAB PO DAILY for 4 Days, #8 TAB 1 Refill Prov: CAMERON SENIOR DO 01/05/25 Discharged With: Self, Spouse Critical Care Note Critical Care Time?: Yes (45 min-critical care time only) Heart Score Heart Score: Heart Score Response (Comments) Value History N/A 0 EKG N/A 0 Age N/A 0 Risk Factors N/A 0 Troponin N/A 0 Total 0 I personally scribed for CAMERON SENIOR DO ([email or web address]) on 01/05/25 at 13:16. Electronically submitted by Kay Frazier ([employer]). I personally scribed for CAMERON SENIOR DO ([email or web address]) on 01/05/25 at 13:54. Electronically submitted by Kay Frazier ([email or web address]). I personally scribed for CAMERON SENIOR DO ([email or web address]) on 01/05/25 at 13:54. Electronically submitted by Kay Frazier ([email or web address]). I personally scribed for CAMERON SENIOR DO ([email or web address]) on 01/05/25 at 13:55. Electronically submitted by Kay Frazier ([email or web address]). I personally scribed for CAMERON SENIOR DO ([email or web address]) on 01/05/25 at 19:40. Electronically submitted by Kay Frazier ([email or web address]). CAMERON SENIOR DO Jan 05, 2025 13:16
--- NOTE | 2025-01-05 13:36 | DVH ---
CHEST RADIOGRAPH Indication: sob Technique: Single frontal view of the chest was obtained COMPARISON: XY CHEST PORTABLE on DOS: 12/28/24 FINDINGS: Lines and Tubes: None Lungs: Pulmonary vascular congestion Pleura: No effusion. No pneumothorax. Cardiomediastinal contours: Cardiomegaly Bones: Unremarkable IMPRESSION: Pulmonary vascular congestion.
[2025-01-05 13:48] LABS: Urine Bacteria None Seen /hpf (None Seen)
[2025-01-05 14:02] LABS: Urine Blood Negative /uL (Negative); Urine Clarity Clear (Clear); Urine Color Light-Yellow (Yellow); Urine Protein, UAD Negative (Negative); Urine Specific Gravity 1.012 (1.001-1.035); Urine Squamous Epithelial Cell None Seen /hpf (<5); Urine Urobilinogen Normal (Negative); Urine WBC 1 /HPF (0-3)
[2025-01-05 14:18] LABS: Basophils # (auto) 0 10 ^3/uL (0-0.2); Basophils % (auto) 0.3 % (0.0-2.0); Eosinophils # (auto) 0 10 ^3/uL (0-0.8); Eosinophils % (auto) 0.8 % (0.0-7.0); Hematocrit 41.1 % (41.0-53.0); Hemoglobin 13.9 g/dL (13.5-17.5); Lymphocytes # (auto) 0.8 10 ^3/uL (0.4-5.4); Lymphocytes % (auto) 12.5 % (10.0-50.0); Mean Corpuscular Hemoglobin 33.7 pg (28.0-32.0); Mean Corpuscular Hgb Conc. 33.7 g/dL (32.0-36.0); Mean Corpuscular Volume 99.9 fL (80.0-100.0); Monocytes # (auto) 0.7 10 ^3/uL (0-1.3); Monocytes % (auto) 10.7 % (0.0-12.0); Neutrophils # (auto) 4.6 10 ^3/uL (1.6-8.6); Neutrophils % (auto) 75.7 % (37.0-80.0); Nucleated Red Blood Cells % 0.1 %; Platelet Count (auto) 160 10^3/uL (140-450); Red Blood Cells 4.11 10^6/uL (4.5-5.90); Red Cell Distribution Width 14.5 % (11.8-14.3); White Blood Cell 6.1 10^3/uL (4.4-10.8)
[2025-01-05 14:33] LABS: Alanine Aminotransferase 31 U/L (7-40); Alkaline Phosphatase 64 U/L (46-116); Anion Gap 7 (5-15); Aspartate Aminotransferase 26 U/L (13-40); BUN/Creatinine Ratio 27.9 (10.0-20.0); Blood Urea Nitrogen 19 mg/dL (9-23); Calcium 9.7 mg/dL (8.7-10.4); Glucose 101 mg/dL (74-106); Potassium 4.4 mmol/L (3.5-5.1)
[2025-01-05 14:34] LABS: Albumin 4.6 g/dL (3.2-4.8); Total Protein 6.3 g/dL (5.7-8.2)
[2025-01-05 14:54] LABS: Bilirubin, Total 1.7 mg/dL (0.2-1.0); Carbon Dioxide 31 mmol/L (20-31); Chloride 89 mmol/L (98-107); Sodium 127 mmol/L (136-145)
[2025-01-05] MEDS ORDERED: ONDANSETRON HCL 4 MG/2 ML VIAL IV PRN (19:15)
[2025-01-05] MEDS ORDERED: ACETAMINOPHEN 325 MG TAB PO PRN (19:15)
--- NOTE | 2025-01-05 20:38 | DVHHP2 ---
History of Present Illness Reason for Visit: Shortness for breath History of Present Illness 74-year-old presents for evaluation of shortness for breath. Patient reports being discharged four days ago after being admitted for exacerbation of congestive heart failure. Patient reports being unable to receive his prescribed medications. Today he presents with shortness for breath and states he has gained 4.4 lb. Denies chest pain or palpitations. No other acute complaints reported. Past Medical History Atrial fibrillation, hypertension, CHF, dyslipidemia Past Surgical History Hernia repair Family History Noncontributory Smoke: No ALCOHOL: none Drugs: None Lives: with Family Review of Systems Review of Systems Review of systems are currently negative otherwise addressed in HPI. Allergies: Coded Allergies: NO KNOWN ALLERGIES (Unverified , 12/28/24) Medications Current Medications Medications Dose Ordered Sig/Joe Route Start Time Stop Time Status Last Admin Dose Admin Amlodipine Besylate 10 mg DAILY PO 01/06/25 10:00 Apixaban 5 mg BID PO 01/05/25 22:00 Empaglifozin 10 mg DAILY PO 01/06/25 10:00 Furosemide 20 mg BIDD IV 01/06/25 06:00 Metoprolol Tartrate 25 mg BID PO 01/05/25 22:00 Spironolactone 25 mg DAILY PO 01/06/25 10:00 Valsartan 40 mg DAILY PO 01/06/25 10:00 Ondansetron HCl 4 mg Q4HP PRN IV 01/05/25 19:15 Acetaminophen 650 mg Q6HP PRN PO 01/05/25 19:15 Exam Vital Signs Vital Signs Date Time Temp Pulse Resp B/P (MAP) Pulse Ox O2 Delivery O2 Flow Rate FiO2 01/05/25 12:55 97.6 68 20 117/81 (93) 95 Exam Gen: 74-year-old male in mild distress Skin: Warm, dry, normal color and texture, no rash. HEENT: Normocephalic atraumatic, mucous membranes moist and pink. Neck: Cervical and supraclavicular nodes normal without enlargement, trachea is midline, thyroid gland is normal without masses. Pulmonary: Clear to auscultation and percussion bilaterally. Cardiac: Regular rate and rhythm. No murmur Abdomen: Soft, nontender, nondistended, bowel sounds present all 4 quadrants, no guarding, no rigidity, no organomegaly. Extremities: No cyanosis, clubbing, plus one edema bilaterally on lower extremities Neuro: Cranial nerves II through XII grossly intact, normal affect and speech, no focal motor deficits. Labs/Xrays ORDERING PHYSICIAN: HIMANSHU CHURCHILL PROCEDURE(s): ECIDC - ECHO 2D MODE CARDIAC DOP REASON: chf ORDER NUMBER(s): [id number], ACCESSION NUMBER(s): [id number] APPROVED REPORT EXAM: Two-dimensional and M-mode echocardiogram with Doppler and color Doppler. Blood Pressure: 119/77 mmHg INDICATION CHF RISK FACTORS Obesity: Height: 5'10", Weight: 243 DIMENSIONS LVDd 6.3 (3.8-5.7cm) LA (2D) 5.2 (1.9-4.0cm) Aortic Root 3.5 (2.0- 3.7cm) LVDs 5.8 (2.5-4.0cm) LA (MM) (1.9-4.0cm) Aortic Cusp Exc 1.8 (1.5- 2.0cm) EF (%) 20.0 (55-70%) Rt. Atrium 6.0 (1.9-4.0cm) Asc. Aorta cm IVSd 1.1 (0.7-1.1cm) RV (D) (1.8-2.4cm) PWd 1.3 (0.7-1.1cm) Mitral Valve Mitral Mitral Stenosis E wave 1.31m/s MV Mean GR. mmHg E/A ratio 0.0 2D MVA cm2 Aortic Valve Aortic Valve Aortic Stenosis V1 0.77m/s AO Mean GR. 3mmHg V2 1.23m/s AO Peak GR. 6mmHg LVOT Diameter 2.0 (1.8-2.4cm) Doppler LONNIE 1.97cm2 Pulmonic Valve V2 0.77m/s Tricuspid Valve TR Velocity 3.13m/s RVSP 54mmHg Other Information Technically limited study due to body habitus, patient sitting up. Conclusion severe dilated LV LVEF <20% by visual estimate RV enlarged with significant dysfunction moderat to severe mitral regurg marked biatrial enlargement moderat to severe tricuspid regurg ORDERING PHYSICIAN: CAMERON SENIOR DO PROCEDURE(s): CXRP - CHEST PORTABLE REASON: sob ORDER NUMBER(s): [id number], ACCESSION NUMBER(s): [id number] CHEST RADIOGRAPH Indication: sob Technique: Single frontal view of the chest was obtained COMPARISON: XY CHEST PORTABLE on DOS: 12/28/24 FINDINGS: Lines and Tubes: None Lungs: Pulmonary vascular congestion Pleura: No effusion. No pneumothorax. Cardiomediastinal contours: Cardiomegaly Bones: Unremarkable IMPRESSION: Pulmonary vascular congestion. Labs Test 01/05/25 15:32 01/05/25 13:49 01/05/25 12:59 Range/Units Troponin I High Sensitivity 10 </=54 ng/L White Blood Count 6.1 4.4-10.8 10^3/uL Red Blood Count 4.11 L 4.5-5.90 10^6/uL Hemoglobin 13.9 13.5-17.5 g/dL Hematocrit 41.1 41.0-53.0 % Mean Corpuscular Volume 99.9 80.0-100.0 fL Mean Corpuscular Hemoglobin 33.7 H 28.0-32.0 pg Mean Corpuscular Hemoglobin Concent 33.7 32.0-36.0 g/dL Red Cell Distribution Width 14.5 H 11.8-14.3 % Platelet Count 160 140-450 10^3/uL Mean Platelet Volume 7.2 6.9-10.8 fL Neutrophils (%) (Auto) 75.7 37.0-80.0 % Lymphocytes (%) (Auto) 12.5 10.0-50.0 % Monocytes (%) (Auto) 10.7 0.0-12.0 % Eosinophils (%) (Auto) 0.8 0.0-7.0 % Basophils (%) (Auto) 0.3 0.0-2.0 % Neutrophils # (Auto) 4.6 1.6-8.6 10 ^3/uL Lymphocytes # (Auto) 0.8 0.4-5.4 10 ^3/uL Monocytes # (Auto) 0.7 0-1.3 10 ^3/uL Eosinophils # (Auto) 0 0-0.8 10 ^3/uL Basophils # (Auto) 0 0-0.2 10 ^3/uL Nucleated Red Blood Cells 0.1 % Sodium Level 127 #L 136-145 mmol/L Potassium Level 4.4 3.5-5.1 mmol/L Chloride Level 89 L 98-107 mmol/L Carbon Dioxide Level 31 20-31 mmol/L Anion Gap 7 5-15 Blood Urea Nitrogen 19 9-23 mg/dL Creatinine 0.68 L 0.700-1.30 mg/dL Glomerular Filtration Rate Calc 98 >90 mL/min BUN/Creatinine Ratio 27.9 H 10.0-20.0 Serum Glucose 101 74-106 mg/dL Calcium Level 9.7 8.7-10.4 mg/dL Total Bilirubin 1.7 H 0.2-1.0 mg/dL Aspartate Amino Transferase (AST) 26 13-40 U/L Alanine Aminotransferase (ALT) 31 7-40 U/L Alkaline Phosphatase 64 46-116 U/L B-Type Natriuretic Peptide 1274.45 0-100 pg/mL Total Protein 6.3 5.7-8.2 g/dL Albumin 4.6 3.2-4.8 g/dL Urine Color Light-yellow Yellow Urine Clarity Clear Clear Urine pH 7.0 5.0-9.0 Urine Specific [place] 1.012 1.001-1.035 Urine Protein Negative Negative Urine Ketones Negative Negative Urine Blood Negative Negative /uL Urine Nitrite Negative Negative Urine Bilirubin Negative Negative Urine Urobilinogen Normal Negative mg/dL Urine Leukocyte Esterase Negative Negative /uL Urine RBC <1 0 - 3 /hpf Urine Microscopic WBC 1 0-3 /HPF Urine Squamous Epithelial Cells None seen <5 /hpf Urine Bacteria None seen None Seen /hpf Urine Glucose Normal Normal mg/dL Assessment/Plan Assessment/Plan Assessment Acute on chronic congestive heart failure Hypertension Secondary coagulopathy Plan Admit the patient to [facility] to the hospitalist IV Lasix to diurese Resume home medications Continue treatment per orders. Plan discussed with: Patient My Orders Orders - MITZY HOLLAND AGACNP Procedure Category Date Status Time Amlodipine Tablet PHA 01/06/25 In Process (Norvasc Tablet) 10:00 Apixaban (Eliquis) PHA 01/05/25 In Process 22:00 Empagliflozin PHA 01/06/25 In Process (Jardiance) 10:00 Furosemide Injection PHA 01/06/25 In Process (Lasix Injection) 06:00 Metoprolol Tartrate PHA 01/05/25 In Process Tablet (Lopressor Ta 22:00 Spironolactone PHA 01/06/25 In Process (Aldactone) 10:00 Valsartan (Diovan) PHA 01/06/25 In Process 10:00 Basic Metabolic Panel LAB 01/06/25 Verified 04:00 Admit ADMIT 01/05/25 Transmitted 19:06 Ondansetron Hcl PHA 01/05/25 In Process (Zofran) 19:15 Cardiac DIET 01/06/25 Transmitted Diet-2gna,Lofat,Lochol Breakfast Condition: Stable MONSE 01/05/25 In Process 19:06 Acetaminophen Tablet PHA 01/05/25 In Process (Tylenol Tablet) 19:15 Bedrest With Bathroom MONSE 01/05/25 In Process Privileg 19:06 Date of Service: Jan 05, 2025 Billing Provider: MITZY HOLLAND Common Visit Codes: [id number] INP/OBS CARE (HIGH) MITZY HOLLAND Jan 05, 2025 20:38
[2025-01-05] MEDS: FUROSEMIDE 40 MG/4 ML VIAL IV ONE (20:48)
[2025-01-05 20:53] VITALS: BP 115/72; PULSE 72; RESP 18; TEMP 98; O2SAT 97
[2025-01-05] MEDS ORDERED: FURO1TAB33 PO (20:54)
[2025-01-05] MEDS ORDERED: APIXABAN 5 MG TAB PO SCH (22:00)
[2025-01-05] MEDS ORDERED: METOPROLOL TARTRATE 25 MG TAB PO SCH (22:00)
[2025-01-06] MEDS ORDERED: FUROSEMIDE 20 MG/2 ML VIAL IV SCH (06:00)
--- NOTE | 2025-01-06 06:31 | ECG ---
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
[2025-01-06] MEDS ORDERED: amLODIPine BESYLATE 5 MG TAB PO SCH (10:00)
[2025-01-06] MEDS ORDERED: EMPAGLIFLOZIN 10 MG TAB PO SCH (10:00)
[2025-01-06] MEDS ORDERED: VALSARTAN 80 MG TAB PO SCH (10:00)
[2025-01-06] MEDS ORDERED: SPIRONOLACTONE 25 MG TAB PO SCH (10:00)
== END 2025-01-05 21:12 | disposition left against medical advice (07) | DRG 292 ==
LOC: ER 11:52 → OVERFLOW 19:06
PROVIDERS: ADMIT Nurse Practitioner; ATTEND Nurse Practitioner
DX: I11.0 Hypertensive heart disease with heart failure (principal); D68.9 Coagulation defect, unspecified; E87.1 Hypo-osmolality and hyponatremia; I50.9 Heart failure, unspecified; Z53.29 Procedure and treatment not carried out because of patient's decision for other reasons; E78.5 Hyperlipidemia, unspecified; I48.91 Unspecified atrial fibrillation
CPT/HCPCS: 36415; 71045; 80053; 81001; 83880; 84484; 85025; 93005; G0378